=== PATIENT | female | born 1960 | race American Indian/Alaskan Native ===

== ENCOUNTER 2021-05-01 12:33 | Inpatient (IN) | payer BC ==
--- NOTE | 2021-05-01 12:39 | Emergency Department Report ---
ED Neuro Deficit HPI - General Stated Complaint: POSSIBLE CVA Time Seen by Provider: 05/01/21 12:35 Source: patient, EMS Mode of arrival: Stretcher Limitations: Physical Limitation - History of Present Illness Initial Comments: 61-year-old female with a past medical history hypertension and diabetes presents with EMS after having a seizure at work and right-sided weakness. EMS was called approximate 11:37AM. Patient apparently had a syncopal episode while at work and was called by bystanders. No head injury reported. Patient had 2 seizures witnessed by coworkers and one seizure witnessed by EMS. Patient received 1 mg of Ativan IV. They report that patient was aphasic but started to answer questions in route to the hospital. She is currently alert, oriented x3 although slow to respond to questions. Accu-Chek reported 139 - Related Data Allergies/Adverse Reactions: Allergies Allergy/AdvReac Type Severity Reaction Status Date / Time No Known Allergies Allergy Verified 05/01/21 13:54 ED Review of Systems ROS: Stated complaint: POSSIBLE CVA Other details as noted in HPI Comment: Unobtainable due to pts medical conditions ED Neuro Physical Exam - General Suspected Stroke: Yes - Head Head exam: Present: atraumatic - Neurological Exam Neurological exam: Present: alert - NIHSS Assessment Interval: Baseline 1a. Level of Consciousness: alert/keenly responsive 1b. LOC Questions: answers both correctly 1c. LOC Commands: performs tasks correctly 2. Best Gaze: normal 3. Visual: no visual loss 4. Facial Palsy: normal symmetrical movement 5b. Motor Arm Right: drift 5a. Motor Arm Left: no drift 6a. Motor Leg Left: no drift 6b. Motor Leg Right: some gravity effort 7. Limb Ataxia: absent 8. Sensory: normal 9. Best Language: no aphasia 10. Dysarthria: mild/moderate dysarthria 11. 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 Psych: Appropriate behavior Skin: No rash ED Course Vital Signs 05/01/21 05/01/21 05/01/21 13:24 13:30 13:50 Pulse Rate 55 L 53 L Respiratory 19 20 17 Rate Blood Pressure 137/73 O2 Sat by Pulse 100 100 Oximetry 05/01/21 05/01/21 05/01/21 14:00 14:16 14:30 Pulse Rate 52 L 65 70 Respiratory 17 17 18 Rate Blood Pressure 137/73 123/58 140/61 O2 Sat by Pulse 99 99 99 Oximetry 05/01/21 05/01/21 14:46 15:00 Pulse Rate 69 68 Respiratory 16 12 Rate Blood Pressure 135/68 135/61 O2 Sat by Pulse 97 100 Oximetry - Reevaluation(s) Reevaluation #1: 05/01/21 13:30 Patient is now speaking more fluently than she was when she 1st arrived. She does not endorse tongue biting but states she did urinate on herself during seizure activity. 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 05/01/21 14:32 tpa was reordered based on corrected weight - Consultations Consultation #1: 05/01/21 13:59 Neurology was contacted prior to patient's arrival and upon return for CAT scan for assessment of patient. CT head results reviewed and patient deemed a candidate for TPA given persistent right-sided deficits and inability to ambulate secondary to right leg weakness. Patient consented for TPA after neurologist reviewed risks and benefits. 05/01/21 15:09 case d/w Neuro Dr Carter interventionalist at [place], since neuro stroke scale low and lack of proximal large vessel occlusion, he does not feel pt meets criteria for occlusion. - Lab Data Result diagrams: 05/01/21 13:02 05/01/21 13:02 Lab Results 05/01/21 05/01/21 05/01/21 Range/Units 12:36 13:02 13:02 WBC 7.8 (4.5-11.0) K/mm3 RBC 4.56 (3.65-5.03) M/mm3 Hgb 11.4 (10.1-14.3) gm/dl Hct 36.0 (30.3-42.9) % MCV 79 (79-97) fl MCH 25 L (28-32) pg MCHC 32 (30-34) % RDW 16.7 H (13.2-15.2) % Plt Count 189 (140-440) K/mm3 Lymph % (Auto) 18.3 (13.4-35.0) % Giles % (Auto) 6.0 (0.0-7.3) % Eos % (Auto) 1.0 (0.0-4.3) % Baso % (Auto) 0.3 (0.0-1.8) % Lymph # (Auto) 1.4 (1.2-5.4) K/mm3 Giles # (Auto) 0.5 (0.0-0.8) K/mm3 Eos # (Auto) 0.1 (0.0-0.4) K/mm3 Baso # (Auto) 0.0 (0.0-0.1) K/mm3 Seg Neutrophils % 74.4 H (40.0-70.0) % Seg Neutrophils # 5.8 (1.8-7.7) K/mm3 PT 13.9 (12.2-14.9) Sec. INR 0.96 (0.87-1.13) APTT 21.5 L (24.2-36.6) Sec. Thrombin Time 17.4 (15.1-19.6) Sec. Sodium (137-145) mmol/L Potassium (3.6-5.0) mmol/L Chloride (98-107) mmol/L Carbon Dioxide (22-30) mmol/L Anion Gap mmol/L BUN (7-17) mg/dL Creatinine (0.6-1.2) mg/dL Estimated GFR ml/min BUN/Creatinine Ratio % Glucose (65-100) mg/dL POC Glucose 95 (70-105) mg/dL Calcium (8.4-10.2) mg/dL Magnesium (1.7-2.3) mg/dL Total Bilirubin (0.1-1.2) mg/dL AST (5-40) units/L ALT (7-56) units/L Alkaline Phosphatase (35-129) units/L Total Creatine Kinase (30-135) units/L CK-MB (CK-2) (0.0-4.0) ng/mL CK-MB (CK-2) Rel Index (0-4) Troponin T (0.00-0.029) ng/mL Total Protein (6.3-8.2) g/dL Albumin (3.9-5) g/dL Albumin/Globulin Ratio % 05/01/21 05/01/21 Range/Units 13:02 13:02 WBC (4.5-11.0) K/mm3 RBC (3.65-5.03) M/mm3 Hgb (10.1-14.3) gm/dl Hct (30.3-42.9) % MCV (79-97) fl MCH (28-32) pg MCHC (30-34) % RDW (13.2-15.2) % Plt Count (140-440) K/mm3 Lymph % (Auto) (13.4-35.0) % Giles % (Auto) (0.0-7.3) % Eos % (Auto) (0.0-4.3) % Baso % (Auto) (0.0-1.8) % Lymph # (Auto) (1.2-5.4) K/mm3 Giles # (Auto) (0.0-0.8) K/mm3 Eos # (Auto) (0.0-0.4) K/mm3 Baso # (Auto) (0.0-0.1) K/mm3 Seg Neutrophils % (40.0-70.0) % Seg Neutrophils # (1.8-7.7) K/mm3 PT (12.2-14.9) Sec. INR (0.87-1.13) APTT (24.2-36.6) Sec. Thrombin Time (15.1-19.6) Sec. Sodium 143 (137-145) mmol/L Potassium 3.5 L (3.6-5.0) mmol/L Chloride 109.3 H (98-107) mmol/L Carbon Dioxide 23 (22-30) mmol/L Anion Gap 14 mmol/L BUN 18 H (7-17) mg/dL Creatinine 0.9 (0.6-1.2) mg/dL Estimated GFR > 60 ml/min BUN/Creatinine Ratio 20 % Glucose 116 H (65-100) mg/dL POC Glucose (70-105) mg/dL Calcium 7.9 L (8.4-10.2) mg/dL Magnesium 1.70 (1.7-2.3) mg/dL Total Bilirubin 0.20 (0.1-1.2) mg/dL AST 10 (5-40) units/L ALT 11 (7-56) units/L Alkaline Phosphatase 85 (35-129) units/L Total Creatine Kinase 160 H (30-135) units/L CK-MB (CK-2) 2.1 (0.0-4.0) ng/mL CK-MB (CK-2) Rel Index 1.3 (0-4) Troponin T < 0.010 (0.00-0.029) ng/mL Total Protein 5.1 L (6.3-8.2) g/dL Albumin 3.3 L (3.9-5) g/dL Albumin/Globulin Ratio 1.8 % - EKG Data -: EKG Interpreted by Ca EKG shows normal: sinus rhythm (no stemi, inf lat t inversions), ST-T waves (no stemi, in lat t in versions) Rate: bradycardia (53) - Radiology Data Radiology results: report reviewed CT head/brain wo con INDICATION / CLINICAL INFORMATION: 61 years Female; call report [phone] Stroke symptoms. TECHNIQUE: Routine CT head without contrast. All CT scans at this location are performed using CT dose reduction for ALARA by means of automated exposure control. COMPARISON: None. FINDINGS: BRAIN / INTRACRANIAL CONTENTS: The brain appears to demonstrate appropriate attenuation for age. The ventricular system is within normal limits in size and configuration. There is no clear CT evidence of acute intracranial hemorrhage or significant mass effect. ORBITS: No significant abnormality of visualized orbits. SINUSES / MASTOIDS: No significant abnormality in the visualized paranasal sinuses or mastoid air cells. CRANIOCERVICAL JUNCTION: No significant abnormality. ADDITIONAL FINDINGS: There is an incidental calcification along the left anterior to mid falx measuring 1.2 similar greatest AP dimension at. There is no significant mass effect or adjacent of vasogenic edema. This finding most likely reflects a incidental dural calcification. Process such as calcified meningioma is felt to be a less likely given the orientation. IMPRESSION: 1. There is no CT evidence of acute intracranial process. 2. There is incidental 1.2 cm focus of calcification projected along the anterior mid left falx as described. CT angio neck INDICATION / CLINICAL INFORMATION: 61 years Female; stroke sx OMNI 350 100ML. TECHNIQUE: Thin cut axial images obtained through the head during IV bolus contrast administration. Sagittal, coronal, and 3 plane MIP reconstructions performed by the technologist. NASCET type criteria used evaluate stenoses. All CT scans at this location are performed using CT dose reduction for ALARA by means of automated exposure control. COMPARISON: None available. FINDINGS: CAROTID ARTERIES: There is atherosclerotic plaque involving proximal right ICA with approximately 30-40% stenosis by NASCET criteria, best seen on the sagittal reconstructed images. There is milder plaque involving the proximal left ICA without significant stenosis by NASCET criteria. VERTEBRAL ARTERIES: The motion and beam hardening obscure the origins of the vertebral arteries. However, there is no clear CTA evidence of significant focal stenosis involving cervical vertebral arteries. ARCH: There is no clear evidence of significant stenosis involving origins of the arch vessels at. There appears to be developmental common origin of the brachiocephalic and left common carotid arteries. ADDITIONAL FINDINGS: Remainder of the surrounding soft tissues are grossly normal. IMPRESSION: There is atherosclerotic plaque involving proximal right ICA with 30-40% stenosis by NASCET criteria. There is mild plaque involving proximal left ICA without significant stenosis by NASCET criteria. There is no significant stenosis involving cervical vertebral arteries or arch vessels. CT angio head INDICATION / CLINICAL INFORMATION: 61 years Female; stroke sx. TECHNIQUE: Thin cut axial images obtained through the head during IV bolus contrast administration. Sagittal, coronal, and 3 plane MIP reconstructions performed by the technologist. NASCET type criteria used evaluate stenoses. Automated exposure control utilized for radiation reduction purposes. COMPARISON: None available. FINDINGS: INTERNAL CAROTID ARTERIES: There are foci of atherosclerotic calcification along the ophthalmic and clinoid segments of the right ICA with apparent mild to moderate stenosis by NASCET criteria. There is no significant focal narrowing involving the intracranial left ICA. VERTEBROBASILAR SYSTEM: There is calcification involving the proximal intracranial segments of the vertebral arteries also with mild to moderate narrowing which appears greater on the left. There is no significant focal stenosis involving the basilar artery. 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 The motion obscures evaluation of the more distal cerebral branches at. However, there is no clear evidence of significant stenosis involving the proximal cerebral arteries. There does appear to be relative decreased contrast opacification of the vessels within the right frontal lobe which may be related to the degree of motion artifact and positioning and correlation would be needed given history of unspecified "stroke symptoms". ANEURYSM: None identified. ADDITIONAL FINDINGS: There is developmental hypoplasia the left transverse and sigmoid sinuses with faint opacification. IMPRESSION: The study some to by motion. However, appears be relative decrease contrast opacification of the branch of vessels within the right frontal lobe as detailed above and correlation would be needed given the history of unspecified "stroke symptoms". There is atherosclerotic calcification with mild to moderate narrowing of the intracranial right ICA and bilateral vertebral arteries as detailed above. - Medical Decision Making 61-year-old female with a past medical history of hypertension diabetes presents to the hospital with seizure and right-sided weakness. Patient speech and weakness gradually improving in the department however, patient has persistent right leg weakness making it difficult for her to stand and ambulate. This was deemed a significant deficit as per neurology and TPA was recommended after negative CT head obtained. No large vessel occlusion identified on CT angiogram. Patient also received Keppra for seizure activity prior to arrival. Patient will require admission to the ICU. Case discussed with hospitalist Dr. Hernandez - Differential Diagnosis Ischemic CVA, hemorrhagic CVA, seizure, Bernardo's paralysis Critical Care Time: Yes Critical care time in (mins) excluding proc time.: 35 Critical care attestation.: If time is entered above; I have spent that time in minutes in the direct care of this critically ill patient, excluding procedure time. Critical Care Time: 35 Minutes of critical care time excluding procedures were used in the care of the patient. I came immediately to the bedside upon patient's arrival. I obtained history from EMS at the bedside. I discussed treatment plan with the nursing team members. I reviewed electronic record. Patient required multiple interventions and reassessments. Spoke with technology consultant emergently regarding stroke evaluation. Hospitalist to admit ED Disposition Clinical Impression: New onset seizure, Right sided weakness, Received intravenous tissue plasminog en activator (tPA) in emergency department Disposition: ADMITTED INPATIENT Is pt being admited?: Yes Condition: Stable Time of Disposition: 14:36 (DR Hernandez/hospitalist)
[2021-05-01 13:24] LABS: Basophils % (Auto) 0.3 % (0.0-1.8); Eosinophils # (Auto) 0.1 K/mm3 (0.0-0.4); Hemoglobin 11.4 gm/dl (10.1-14.3); Lymphocytes # (Auto) 1.4 K/mm3 (1.2-5.4); Lymphocytes % (Auto) 18.3 % (13.4-35.0); Mean Corpuscular HGB Conc 32 % (30-34); Mean Corpuscular Volume 79 fl (79-97); Monocytes # (Auto) 0.5 K/mm3 (0.0-0.8); Platelet Count 189 K/mm3 (140-440); Red Blood Count 4.56 M/mm3 (3.65-5.03); Red Cell Distribution Width 16.7 % (13.2-15.2)
[2021-05-01 13:26] LABS: INR 0.96 (0.87-1.13); Partial Thromboplastin Time 21.5 Sec. (24.2-36.6); Thrombin Time 17.4 Sec. (15.1-19.6)
[2021-05-01 13:54] LABS: Creatine Kinase MB 2.1 ng/mL (0.0-4.0)
[2021-05-01 13:55] LABS: Alanine Aminotransferase 11 units/L (7-56); Albumin 3.3 g/dL (3.9-5); BUN/Creatinine Ratio 20; Blood Urea Nitrogen 18 mg/dL (7-17); Calcium 7.9 mg/dL (8.4-10.2); Hemolysis Index 7
--- NOTE | 2021-05-01 13:56 | Cat Scan Report ---
CT head/brain wo con INDICATION / CLINICAL INFORMATION: 61 years Female; call report [phone] Stroke symptoms. TECHNIQUE: Routine CT head without contrast. All CT scans at this location are performed using CT dos e reduction for ALARA by means of automated exposure control. COMPARISON: None. FINDINGS: BRAIN / INTRACRANIAL CONTENTS: The brain appears to demonstrate appropriate attenuation for age. The ventricular system is within normal limits in size and configuration. There is no clear CT evidence o f acute intracranial hemorrhage or significant mass effect. ORBITS: No significant abnormality of visualized orbits. SINUSES / MASTOIDS: No significant abnormality in the visualized paranasal sinuses or mastoid air isabel ls. CRANIOCERVICAL JUNCTION: No significant abnormality. ADDITIONAL FINDINGS: There is an incidental calcification along the left anterior to mid falx measuri ng 1.2 similar greatest AP dimension at. There is no significant mass effect or adjacent of vasogenic edema. This finding most likely reflects a incidental dural calcification. Process such as calcified meningioma is felt to be a less likely given the orientation. IMPRESSION: 1. There is no CT evidence of acute intracranial process. 2. There is incidental 1.2 cm focus of calcification projected along the anterior mid left falx as de scribed. The study was specified as code stroke and called emergently to Dr. Luna at 12:45 PM Central standard time. Signer Name: Emiliano Evans MD Signed: 05/01/2021 1:51 PM Workstation Name: [id number]
[2021-05-01] MEDS ORDERED: SODIUM CHLORIDE 0.9% 50 ML IVPB IV ONE ×2 (13:58→14:26)
[2021-05-01] MEDS ORDERED: ALTEPLASE 100 MG INJ KIT IV ONE ×4 (13:58→14:26)
--- NOTE | 2021-05-01 14:00 | Cat Scan Report ---
CT angio neck INDICATION / CLINICAL INFORMATION: 61 years Female; stroke sx OMNI 350 100ML. TECHNIQUE: Thin cut axial images obtained through the head during IV bolus contrast administration. S agittal, coronal, and 3 plane MIP reconstructions performed by the technologist. NASCET type criteria used evaluate stenoses. All CT scans at this location are performed using CT dose reduction for ALAR A by means of automated exposure control. COMPARISON: None available. FINDINGS: CAROTID ARTERIES: There is atherosclerotic plaque involving proximal right ICA with approximately 30- 40% stenosis by NASCET criteria, best seen on the sagittal reconstructed images. There is milder plaq ue involving the proximal left ICA without significant stenosis by NASCET criteria. VERTEBRAL ARTERIES: The motion and beam hardening obscure the origins of the vertebral arteries. Chun ignacio, there is no clear CTA evidence of significant focal stenosis involving cervical vertebral arteri es. ARCH: There is no clear evidence of significant stenosis involving origins of the arch vessels at. Th ere appears to be developmental common origin of the brachiocephalic and left common carotid arteries . ADDITIONAL FINDINGS: Remainder of the surrounding soft tissues are grossly normal. IMPRESSION: There is atherosclerotic plaque involving proximal right ICA with 30-40% stenosis by NASCET criteria. There is mild plaque involving proximal left ICA without significant stenosis by NASCET criteria. There is no significant stenosis involving cervical vertebral arteries or arch vessels. Signer Name: Emiliano Evans MD Signed: 05/01/2021 1:56 PM Workstation Name: [id number]
--- NOTE | 2021-05-01 14:09 | Cat Scan Report ---
CT angio head INDICATION / CLINICAL INFORMATION: 61 years Female; stroke sx. TECHNIQUE: Thin cut axial images obtained through the head during IV bolus contrast administration. S agittal, coronal, and 3 plane MIP reconstructions performed by the technologist. NASCET type criteria used evaluate stenoses. Automated exposure control utilized for radiation reduction purposes. COMPARISON: None available. FINDINGS: INTERNAL CAROTID ARTERIES: There are foci of atherosclerotic calcification along the ophthalmic and c linoid segments of the right ICA with apparent mild to moderate stenosis by NASCET criteria. There is no significant focal narrowing involving the intracranial left ICA. VERTEBROBASILAR SYSTEM: There is calcification involving the proximal intracranial segments of the ve rtebral arteries also with mild to moderate narrowing which appears greater on the left. There is no significant focal stenosis involving the basilar artery. 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 The motion o bscures evaluation of the more distal cerebral branches at. However, there is no clear evidence of si gnificant stenosis involving the proximal cerebral arteries. There does appear to be relative decreas ed contrast opacification of the vessels within the right frontal lobe which may be related to the de gree of motion artifact and positioning and correlation would be needed given history of unspecified "stroke symptoms". ANEURYSM: None identified. 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 IMPRESSION: The study some to by motion. However, appears be relative decrease contrast opacification of the bran ch of vessels within the right frontal lobe as detailed above and correlation would be needed given t he history of unspecified "stroke symptoms". There is atherosclerotic calcification with mild to moderate narrowing of the intracranial right ICA and bilateral vertebral arteries as detailed above. Signer Name: Emiliano Evans MD Signed: 05/01/2021 2:05 PM Workstation Name: [id number]
[2021-05-01] MEDS ORDERED: levETIRAcetam 1000 MG/NS 0.75% 1,000 MG/100 ML BAG IV ONE (14:30)
--- NOTE | 2021-05-01 14:37 | History and Physical Report ---
History of Present Illness Chief complaint: She said that she was weak on her right side and then she had a seizure History of present illness: 61 YO Female with Obesity presents to ED for evaluation. Patient has diminished cognition at the time my evaluation and is unable to provide detailed history. Patient history taken EMS staff, ED staff, as well as coworkers who witnessed the incident. As per coworkers the patient complained of right-sided weakness and subsequently lost consciousness. Patient subsequently had multiple witnessed seizures lasting longer than 5 minutes without return to baseline level of consciousness. EMS was notified and upon arrival the patient was found to be in distress with a neurologic deficit with new onset seizure disorder. A code stroke was called and the patient was transported to [facility] for further care and evaluation of the aforementioned symptoms. The patient was seen and evaluated in the emergency department. All lab and imaging studies reviewed. Patient found to have a focal neurologic deficit and was initiated on CVA protocol. Teleneurology team consulted in ED. Patient treated with TPA. Patient admitted to ICU status post TPA due to increased risk of worsening symptoms. Patient has diminished cognition but has a positive gag reflex and is able to protect her airway without difficulty. No reports of fever, chills, chest pain, palpitation, productive cough, skin rash, recent contact, known exposure to COVID-19. No prior admission for review. No medication listed at time of admission for reconciliation. Advanced care planning conducted in ED. Past History Past Medical History: other (See HPI) Past Surgical History: No surgical history, Other (Reviewed) Social history: single. denies: smoking, alcohol abuse, prescription drug abuse Family history: hypertension Medications and Allergies Allergies Allergy/AdvReac Type Severity Reaction Status Date / Time No Known Allergies Allergy Verified 05/01/21 13:54 Active Meds: Active Medications Levetiracetam (Keppra 1,000 Mg/Ns 0.75% 100ml) 1,000 mg in 100 mls @ 400 mls/hr IV ONCE ONE Stop: 05/01/21 14:44 Review of Systems ROS unobtainable: due to mental status Exam - Constitutional General appearance: Present: mild distress, obese - EENT Eyes: Present: PERRL ENT: hearing intact, clear oral mucosa, hearing decreased - Neck Neck: Present: supple, normal ROM - Respiratory Respiratory effort: normal Respiratory: bilateral: CTA - Cardiovascular Heart Sounds: Present: S1 & S2. Absent: rub, click - Extremities Extremities: pulses symmetrical, No edema Peripheral Pulses: within normal limits - Abdominal General gastrointestinal: Present: soft, non-tender, non-distended, normal bowel sounds Female genitourinary: Present: normal - Integumentary Integumentary: Present: clear, warm, dry - Musculoskeletal Musculoskeletal: right sided weakness - Psychiatric Psychiatric: no appropriate mood/affect, no intact judgment & insight, no memory intact - Neurologic Neurologic: moves all extremities, no gait normal HEART Score - HEART Score Troponin: Troponin T < 0.010 ng/mL (0.00-0.029) 05/01/21 13:02 Results - Labs CBC & Chem 7: 05/01/21 13:02 05/01/21 13:02 Labs: Abnormal lab results 05/01/21 05/01/21 05/01/21 Range/Units 13:02 13:02 13:02 MCH 25 L (28-32) pg RDW 16.7 H (13.2-15.2) % Seg Neutrophils % 74.4 H (40.0-70.0) % APTT 21.5 L (24.2-36.6) Sec. Potassium (3.6-5.0) mmol/L Chloride (98-107) mmol/L BUN (7-17) mg/dL Glucose (65-100) mg/dL Calcium (8.4-10.2) mg/dL Total Creatine Kinase 160 H (30-135) units/L Total Protein (6.3-8.2) g/dL Albumin (3.9-5) g/dL 05/01/21 Range/Units 13:02 MCH (28-32) pg RDW (13.2-15.2) % Seg Neutrophils % (40.0-70.0) % APTT (24.2-36.6) Sec. Potassium 3.5 L (3.6-5.0) mmol/L Chloride 109.3 H (98-107) mmol/L BUN 18 H (7-17) mg/dL Glucose 116 H (65-100) mg/dL Calcium 7.9 L (8.4-10.2) mg/dL Total Creatine Kinase (30-135) units/L Total Protein 5.1 L (6.3-8.2) g/dL Albumin 3.3 L (3.9-5) g/dL Assessment and Plan - Patient Problems (1) CVA (cerebral vascular accident) Current Visit: Yes Status: Acute Plan to address problem: CVA protocol: CT head, neuro check, seizure precautions, physical therapy consulted, Occupational Therapy consulted, speech therapy consulted, telemetry n eurology consulted, patient administered TPA in the emergency department. Hold aspirin for 24 hours status post TPA, lipid panel, statin therapy. (2) Status epilepticus Current Visit: Yes Status: Acute Plan to address problem: New onset seizure disorder complicated by status epilepticus. Patient currently postictal. Seizure precaution, aspiration precautions, fall precautions, antiepileptic therapy, supportive care. Outpatient neurology follow-up. (3) Obesity (BMI 35.0-39.9 without comorbidity) Current Visit: Yes Status: Acute Plan to address problem: Balanced diet, increase physical activity at discharge, outpatient pulmonary follow-up for sleep study. (4) Right hemiparesis Current Visit: Yes Status: Acute Plan to address problem: Physical therapy consulted, supportive care. (5) Received intravenous tissue plasminogen activator (tPA) in emergency department Current Visit: No Status: Acute (6) DVT prophylaxis Current Visit: Yes Status: Acute Plan to address problem: SCD to bilateral lower extremities while in bed (7) Advance care planning Current Visit: Yes Status: Acute Plan to address problem: Disease education conducted, care plan discussed, diagnoses discussed, prognosis discussed, patient is full code, +30 minutes.
[2021-05-01] MEDS ORDERED: MAGNESIUM HYDROXIDE (MOM) ORAL LIQD UDC PO PRN (14:38)
[2021-05-01] MEDS ORDERED: oxyCODONE /ACETAMINOPHEN 5-325MG TAB PO PRN (14:38)
[2021-05-01] MEDS ORDERED: PROMETHAZINE 25 MG RECT SUPP PR PRN (14:38)
[2021-05-01] MEDS ORDERED: METOCLOPRAMIDE 10 MG TAB PO PRN (14:38)
[2021-05-01] MEDS ORDERED: HYDROmorphone 1 MG/1 ML INJ IV PRN (14:38)
[2021-05-01] MEDS ORDERED: ONDANSETRON 4 MG/2 ML INJ IV PRN (14:38)
[2021-05-01] MEDS ORDERED: ACETAMINOPHEN 325 MG TAB PO PRN (14:38)
--- NOTE | 2021-05-01 14:45 | Emergency Department Report ---
Blank Doc - Documentation Documentation: [facility] Consult Note # Demographics Consult Type: Acute Stroke Level 1 (0-4.5 hrs) Patient Location: Emergency Room First Name: Rachna Last Name: Teja Date of : 1960 Age: 61 Gender: Female Facility: [facility] # HPI History: 61 year old female coming from work presents with dizziness. Patient states she was in the service line when she got dizzy and had LOC. She doesnt recall anything after that. As per report from ED provider, patient had possible 3 witnessed seizures. Patient does not have any history of seizures. One of them was witnessed by EMS. She currently is slightly drowsy but oriented otherwise. P louis did receive Ativan after the last event. Patient complaining of RLE weakness that she states is new for her. She is not able to bear weight on her right leg. Last Known Normal: I have collected independent history specific to time last normal or last known well. We have collaborated with the provider and at this time, we have the most current timeline with the information that is available. 2 hours Duration: improving hours 11 am EST mental status improving but motor deficit still present Possible Thrombolytic candidate: not on warfarin or NOACs no intracranial hemorrhage history no recent major surgery no known active major internal bleeding no known blood disorders # Scores Time of exam and NIHSS (Eastern Time): 05/01/2021, 13:27 Level of Consciousness 1a: [0] = Alert; keenly responsive LOC Questions 1b: [0] = Answers both questions correctly LOC Commands 1c: [0] = Performs both tasks correctly Best Gaze 2: [0] = Normal Visual 3: [0] = No visual loss Facial Palsy 4: [0] = Normal symmetrical movements Motor Arm Left 5a: [0] = No drift Motor Arm Right 5b: [0] = No drift Motor Leg Left 6a: [0] = No drift Motor Leg Right 6b: [2] = Some effort against gravity Limb Ataxia 7: [0] = Absent Sensory 8: [1] = [id number] sensory loss Best Language 9: [0] = No aphasia Dysarthria 10: [0] = Normal Extinction and Inattention 11: [0] = No abnormality NIHSS Total: 3 # Exam Mental Status: Patient is slightly slow to respond but her responses are correct. She is able to follow all commands. Additional Neurologic Exam: Patient with difficulty walking due to RLE weakness that is new for her starting today. She feels her gait is off. # PMH-FH-SH Past Medical History: Diabetes hypertension Past Surgical History: cholecystectomy total hip replacement Social History: smoker non-drinker no drugs Medications: antihypertensive diabetic medication # Data Time Head CT personally read by me ( Time): 05/01/2021, 13:[address]: no bleed preliminarily reviewed by me, please refer to radiology read for official reading possible calcified meningioma CTA Head: no large vessel occlusion preliminarily reviewed by me, please refer to radiology read for official reading CTA Neck: preliminarily reviewed by me, please refer to radiology read for official reading # Assessment Impression: 61 year old male with hx of HTN, DM presents to the ER from work after having LOC. Patient had 3 witnessed seizure events, the last seen by EMS after which she received Ativan 1-2mg (unclear dose). Patient currently slightly drowsy and slow to respond but otherwise with it. She is complaining of some sensory deficit on the right arm and leg that is minimal. There is some effort against gravity in the RLE. NIHSS: 3. Given patients risk factors, there is certainly concern for stroke. CTH reviewed with no contraindication noted. Official read on CTA pending. Given thats NIHSS is 3 but with disabling deficit of inability to ambulate properly, we would recommend tpa at this time. She is within the time window. I discussed side effects of tpa including major bleeding in brain or body that can lead to paralysis or . Patient confirmed understanding. Dr. Quinones was present in the room. Contraindications reviewed and none noted. CTA pending. Recommend stat read and consideration for IR if noted to have LVO. Patient will be admitted for stroke work up. # Plan Thrombolytic/Intervention: IV thrombolytic and possible IA candidate Possible IA Candidate: CTA pending Time IV Thrombolytic Recommended (): 05/01/2021, 13:55 Blood Pressure Management: nicardipine IV fluid bolus Target Blood Pressure: SBP < 180 DBP < 105 Labs: CBC comprehensive metabolic panel hemoglobin A1c lipid panel TSH urine drug screen ua Imaging: (urgency: STAT): CT Angiogram Head and CT Angiogram Neck Imaging: (urgency: routine): MRI Brain with AND without contrast Diagnostic Test: echo with bubble study EEG Therapy/Evaluation: NPO until swallow evaluation PT/OT evaluation speech/swallow consultation Medication: levetiracetam (Keppra) 1000 mg twice daily DVT Prophylaxis: SCD Thrombolytic Administration Recommendations: I reviewed the risks/benefits/alternatives of IV thrombolytic therapy with the patient. They understand there is potential of life threatening hemorrhage from IV thrombolysis. I stated that I believe benefits outweighs risk. They wish to proceed with IV thrombolytic therapy. I have collected independent history specific to time last normal or last known well. We have collaborated with the ED provider and at this time, we have the most current timeline with the information that is available. BP goal< 180/105 for 24hrs post Thrombolytic administration Use Labetolol 10-20mg IV prn or Nicardipine gtt to maintain BP parameters No antiplatelets or anticoagulants for next 24 hrs unless indicated for emergent IA procedure or other life threatening situation ICU admission Call back if there is any decline in neurological condition symptoms deemed to be disabling, despite low NIHSS Other: LDL < 70 If patient has any neurological deterioration please call me back immediately telemetry monitoring seizure precautions I have discussed my recommendations with the referring provider Disposition: transfer to ICU
[2021-05-01] MEDS ORDERED: SODIUM CHLORIDE 0.9% 50 ML IVPB IV PRN (15:00)
--- NOTE | 2021-05-01 16:45 | Vascular Lab Report ---
DUPLEX DOPPLER ULTRASOUND CAROTID, BILATERAL INDICATION / CLINICAL INFORMATION: stroke. COMPARISON: CTA neck performed today. FINDINGS: RIGHT CAROTID: Mild to moderate calcified atherosclerotic plaque. - PLAQUE ESTIMATE (%): < 50% - CCA velocity: 97 cm/sec. - ICA peak systolic velocity: 109 cm/sec. - ICA/CCA PSV Ratio: Less than 2. Right Vertebral Artery: Antegrade flow. LEFT CAROTID: Mild calcified atherosclerotic plaque. - PLAQUE ESTIMATE (%): < 50% - CCA velocity: 79 cm/sec. - ICA peak systolic velocity: 81 cm/sec. - ICA/CCA PSV Ratio: Less than 2. Left Vertebral Artery: Antegrade flow. IMPRESSION: 1. Right Internal Carotid Artery: Less than 50% diameter stenosis. 2. Left Internal Carotid Artery: Less than 50% diameter stenosis. Velocity criteria are extrapolated from diameter data as defined by the Society of Radiologists in Ul trasound Consensus Conference, Radiology 2003; 229;340-346. NO STENOSIS (NORMAL) - Plaque = none; ICA PSV < 125 cm/sec; ICA/CCA PSV Ratio < 2.0 <50% STENOSIS - Plaque < 50%; ICA PSV < 125 cm/sec; ICA/CCA PSV Ratio < 2.0 50-69% STENOSIS - Plaque > 50%; ICA PSV = 125-230 cm/sec; ICA/CCA PSV Ratio = 2.0-4.0 >70% BUT <100% STENOSIS - Plaque > 50%; ICA PSV > 230 cm/sec; ICA/CCA PSV Ratio > 4.0 NEAR OCCLUSION - Plaque = visible lumen; ICA PSV = high/low/none; ICA/CCA PSV Ratio = variable TOTAL OCCLUSION - Plaque = no lumen; ICA PSV = none; ICA/CCA PSV Ratio = N/A Scribed by: Jessica Wong RDMS, RVT Scribed: 05/01/2021 3:14 PM I have reviewed the images, agree with this report, and edited this report as needed. Signer Name: Mikael Dee MD Signed: 05/01/2021 4:41 PM Workstation Name: [id number]
[2021-05-02 06:22] LABS: Chol/HDL Ratio 3.57 %
[2021-05-02 09:45] LABS: Mean Corpuscular HGB Conc 30 % (30-34); Mean Corpuscular Volume 78 fl (79-97); Platelet Count 200 K/mm3 (140-440); Red Blood Count 5.39 M/mm3 (3.65-5.03); Red Cell Distribution Width 17.1 % (13.2-15.2)
[2021-05-02 09:49] LABS: Hematocrit 41.8 % (30.3-42.9); Hemoglobin 12.6 gm/dl (10.1-14.3)
--- NOTE | 2021-05-02 09:50 | Consultation ---
History of Present Illness Consult date: 05/02/21 Reason for Consult: right side weakness ,Syncopy and witnessed seizure,Post TPA History of present illness: She said that she was weak on her right side and then she had a seizure History of present illness: 61 YO Female with Obesity presents to ED for evaluation. Patient has diminished cognition at the time my evaluation and is unable to provide detailed history. Patient history taken EMS staff, ED staff, as well as coworkers who witnessed the incident. As per coworkers the patient complained of right-sided weakness and subsequently lost consciousness. Patient subsequently had multiple witnessed seizures lasting longer than 5 minutes without return to baseline level of consciousness. EMS was notified and upon arrival the patient was found to be in distress with a neurologic deficit with new onset seizure disorder. A code stroke was called and the patient was transported to [facility] for further care and evaluation of the aforementioned symptoms. The patient was seen and evaluated in the emergency department. All lab and imaging studies reviewed. Patient found to have a focal neurologic deficit and was initiated on CVA protocol. Teleneurology team consulted in ED. Patient treated with TPA. Josefa ent admitted to ICU status post TPA due to increased risk of worsening symptoms. Patient has diminished cognition but has a positive gag reflex and is able to protect her airway without difficulty. No reports of fever, chills, chest pain, palpitation, productive cough, skin rash, recent contact, known exposure to COVID-19. No prior admission for review. No medication listed at time of admission for reconciliation. Advanced care planning conducted in ED. Today pt. is alert oriented no complain,no weakness, denied hx of CVA or seizure CT remarkable for falx calcification CTA brain and neck is remarkable for atherosclerotic multiple calcifications intra cranial and ICA <40% -US carotid is <50% bilateral -today NIH#0 -LDl#133 -Echo is pending -MRI is pending Past History Past Medical History: other (See HPI) Past Surgical History: No surgical history, Other (Reviewed) Social history: single. denies: smoking, alcohol abuse, prescription drug abuse Family history: hypertension Medications and Allergies Allergies Allergy/AdvReac Type Severity Reaction Status Date / Time No Known Allergies Allergy Verified 05/01/21 13:54 Active Meds: Active Medications Levetiracetam (Keppra 1,000 Mg/Ns 0.75% 100ml) 1,000 mg in 100 mls @ 400 mls/hr IV ONCE ONE Stop: 05/01/21 14:44 Review of Systems ROS unobtainable: due to mental status Past History Past Medical History: other (See HPI) Past Surgical History: No surgical history, Other (Reviewed) Social history: single. denies: smoking, alcohol abuse, prescription drug abuse Family history: hypertension Medications and Allergies Allergies Allergy/AdvReac Type Severity Reaction Status Date / Time No Known Allergies Allergy Verified 05/01/21 13:54 Active Meds: Active Medications Acetaminophen (Acetaminophen 325 Mg Tab) 650 mg PO Q4H PRN PRN Reason: Pain, Mild (1-3) Aspirin (Aspirin 325 Mg Tab) 325 mg PO QDAY GAMALIEL Atorvastatin Calcium (Atorvastatin 40 Mg Tab) 40 mg PO QHS GAMALIEL Last Admin: 05/01/21 22:09 Dose: 40 mg Bisacodyl (Bisacodyl 10 Mg Rect Supp) 10 mg VA QDAY PRN PRN Reason: Constipation Hydromorphone HCl (Hydromorphone 1 Mg/1 Ml Inj) 0.5 mg IV Q23H PRN PRN Reason: Pain , Severe (7-10) Magnesium Hydroxide (Magnesium Hydroxide (Mom) Oral Liqd Udc) 30 ml PO Q4H PRN PRN Reason: Constipation Metoclopramide HCl (Metoclopramide 10 Mg Tab) 10 mg PO Q6H PRN PRN Reason: Nausea And Vomiting Ondansetron HCl (Ondansetron 4 Mg/2 Ml Inj) 4 mg IV Q8H PRN PRN Reason: Nausea And Vomiting Oxycodone/Acetaminophen (Oxycodone /Acetaminophen 5-325mg Tab) 1 tab PO Q16H PRN PRN Reason: Pain, Moderate (4-6) Promethazine HCl (Promethazine 25 Mg Rect Supp) 25 mg VA Q6H PRN PRN Reason: Nausea And Vomiting Sodium Chloride (Sodium Chloride 0.9% 50 Ml Ivpb) 10 ml IV PRN PRN PRN Reason: LINE FLUSH Physical Examination - Vital Signs Vital Signs: Vital Signs Resp 19 05/01/21 13:24 - Constitutional General appearance: comfortable - EENT EENT: Present: PERRL, mucous membranes moist - Respiratory Respiratory: Present: chest non-tender, lungs clear - Cardiovascular Cardiovascular: Present: regular rate, normal S1, normal S2 Extremities: Present: no peripheral edema bilatateraly, no clubbing, cyanosis - Gastrointestinal Gastrointestinal: Present: normoactive bowel sounds - Integumentary Integumentary: Present: normal - Neurologic Cranial nerve examination: PERRL, EOMI, intact Speech examination: intact Sensorimotor examination: intact Detailed motor examination: grossly full strength in - Level of Consciousness 1a. Level of Consciousness: alert/keenly responsive - LOC Questions 1b. LOC Questions: answers both correctly - LOC Command 1c. LOC Commands: performs tasks correctly - Best Gaze 2. Best Gaze: normal - Visual 3. Visual: no visual loss - Facial Palsy 4. Facial Palsy: normal symmetrical movement - Motor Arm 5a. Motor Arm Left: no drift 5b. Motor Arm Right: no drift - Motor Leg 6a. Motor Leg Left: no drift 6b. Motor Leg Right: no drift - Limb Ataxia 7. Limb Ataxia: absent - Sensory 8. Sensory: normal - Best Language 9. Best Language: no aphasia - Dysarthria 10. Dysarthria: normal - Extinction and Inattention 11. Extinction/Inattention: no abnormality - Scoring Total Score: 0 Stroke Severity: No Stroke Symptoms Results - Laboratory Findings CBC and BMP: 05/02/21 09:26 05/02/21 09:26 Abnormal Lab Findings: Abnormal Labs 05/01/21 05/01/21 05/01/21 13:02 13:02 13:02 MCH 25 L RDW 16.7 H Seg Neutrophils % 74.4 H APTT 21.5 L Potassium Chloride BUN Glucose POC Glucose Calcium Total Creatine Kinase 160 H Total Protein Albumin Cholesterol LDL Cholesterol Direct 05/01/21 05/01/21 05/02/21 13:02 16:47 04:47 MCH RDW Seg Neutrophils % APTT Potassium 3.5 L Chloride 109.3 H BUN 18 H Glucose 116 H POC Glucose 113 H Calcium 7.9 L Total Creatine Kinase Total Protein 5.1 L Albumin 3.3 L Cholesterol 211 H LDL Cholesterol Direct 133 H Assessment and Plan Assessment and Plan 61 YO Female with Obesity presents to ED for evaluation. Patient has diminished cognition at the time my evaluation and is unable to provide detailed history. Patient history taken EMS staff, ED staff, as well as coworkers who witnessed the incident. As per coworkers the patient complained of right-sided weakness and subsequently lost consciousness. Patient subsequently had multiple witnessed seizures lasting longer than 5 minutes without return to baseline level of consciousness. EMS was notified and upon arrival the patient was found to be in distress with a neurologic deficit with new onset seizure disorder. A code stroke was called and the patient was transported to [facility] for further care and evaluation of the aforementioned symptoms. The patient was seen and evaluated in the emergency department. All lab and imaging studies reviewed. Patient found to have a focal neurologic deficit and was initiated on CVA protocol. Teleneurology team consulted in ED. Patient treated with TPA. Patient admitted to ICU status post TPA due to increased risk of worsening symptoms. Patient has diminished cognition but has a positive gag reflex and is able to protect her airway without difficulty. No reports of fever, chills, chest pain, palpitation, productive cough, skin rash, recent contact, known exposure to COVID-19. No prior admission for review. No medication listed at time of admission for reconciliation. Advanced care planning conducted in ED. - Patient Problems #Possible CVA (cerebral vascular accident) - new onset right side weakness followed by syncopy and witnessed seizure -had TPA in ER yesterday -NIH today is #0 -No hx of CVA or Seizure -CT brain is unremarkable -CTA brain and neck is remarkable for scattered atherosclerotic disease intra and extracranial -MRI brain is pending -EEG is pending -Echo is pending -LDL#133 -Keppra 500 mg BID -PT/ST evaluate -Lipitor 40 mg -Hold ASA for now -Cardiac monitering # Status epilepticus -New onset seizure disorder complicated by status epilepticus. - Patient currently postictal. - Seizure precaution, aspiration precautions, fall precautions, antiepileptic therapy, supportive care. - Outpatient neurology follow-up. -Keppra 500 mg bid -EEG # Received intravenous tissue plasminogen activator (tPA) in emergency department # DVT prophylaxis -SCD to bilateral lower extremities while in bed will follow
[2021-05-02 09:59] LABS: Blood Urea Nitrogen 13 mg/dL (7-17); Calcium 8.9 mg/dL (8.4-10.2); Hemolysis Index 7
[2021-05-02] MEDS ORDERED: ASPIRIN 325 MG TAB PO SCH (10:00)
[2021-05-02 10:05] LABS: BUN/Creatinine Ratio 22
[2021-05-02] MEDS ORDERED: SODIUM CHLORIDE 0.9% 50 ML IVPB IV PRN (11:16)
--- NOTE | 2021-05-02 11:29 | Consultation ---
History of Present Illness Consult date: 05/02/21 Requesting physician: BOBO ATWOOD Reason for consult: other (Acute CVA s/p tpA) History of present illness: PULMONARY/CCM CONSULT NOTE (Full dictation # [id number]) Please see dictated notes for full details Past History Past Medical History: other (See HPI) Past Surgical History: No surgical history, Other (Reviewed) Social history: single. denies: smoking, alcohol abuse, prescription drug abuse Family history: hypertension Medications and Allergies Allergies Allergy/AdvReac Type Severity Reaction Status Date / Time No Known Allergies Allergy Verified 05/01/21 13:54 Active Meds: Active Medications Acetaminophen (Acetaminophen 325 Mg Tab) 650 mg PO Q4H PRN PRN Reason: Pain, Mild (1-3) Aspirin (Aspirin 325 Mg Tab) 325 mg PO QDAY GAMALIEL Atorvastatin Calcium (Atorvastatin 40 Mg Tab) 40 mg PO QHS GAMALIEL Last Admin: 05/01/21 22:09 Dose: 40 mg Bisacodyl (Bisacodyl 10 Mg Rect Supp) 10 mg ND QDAY PRN PRN Reason: Constipation Hydromorphone HCl (Hydromorphone 1 Mg/1 Ml Inj) 0.5 mg IV Q23H PRN PRN Reason: Pain , Severe (7-10) Levetiracetam (Levetiracetam 500 Mg Tab) 500 mg PO BID GAMALIEL Magnesium Hydroxide (Magnesium Hydroxide (Mom) Oral Liqd Udc) 30 ml PO Q4H PRN PRN Reason: Constipation Metoclopramide HCl (Metoclopramide 10 Mg Tab) 10 mg PO Q6H PRN PRN Reason: Nausea And Vomiting Ondansetron HCl (Ondansetron 4 Mg/2 Ml Inj) 4 mg IV Q8H PRN PRN Reason: Nausea And Vomiting Oxycodone/Acetaminophen (Oxycodone /Acetaminophen 5-325mg Tab) 1 tab PO Q16H PRN PRN Reason: Pain, Moderate (4-6) Promethazine HCl (Promethazine 25 Mg Rect Supp) 25 mg ND Q6H PRN PRN Reason: Nausea And Vomiting Sodium Chloride (Sodium Chloride 0.9% 50 Ml Ivpb) 10 ml IV PRN PRN PRN Reason: LINE FLUSH Sodium Chloride (Sodium Chloride 0.9% 50 Ml Ivpb) 10 ml IV PRN PRN PRN Reason: FLUSH Physical Examination Vital signs: Vital Signs Resp 19 05/01/21 13:24 Results - Laboratory Findings CBC and BMP: 05/02/21 09:26 05/02/21 09:26 PT/INR, D-dimer PT 13.9 Sec. (12.2-14.9) 05/01/21 13:02 INR 0.96 (0.87-1.13) 05/01/21 13:02 Abnormal lab findings: Abnormal Labs 05/01/21 05/01/21 05/01/21 13:02 13:02 13:02 RBC MCV MCH 25 L RDW 16.7 H Seg Neutrophils % 74.4 H APTT 21.5 L Potassium Chloride BUN Glucose POC Glucose Calcium Total Creatine Kinase 160 H Total Protein Albumin Cholesterol LDL Cholesterol Direct 05/01/21 05/01/21 05/02/21 13:02 16:47 04:47 RBC MCV MCH RDW Seg Neutrophils % APTT Potassium 3.5 L Chloride 109.3 H BUN 18 H Glucose 116 H POC Glucose 113 H Calcium 7.9 L Total Creatine Kinase Total Protein 5.1 L Albumin 3.3 L Cholesterol 211 H LDL Cholesterol Direct 133 H 05/02/21 05/02/21 09:26 09:26 RBC 5.39 H MCV 78 L MCH 23 L RDW 17.1 H Seg Neutrophils % APTT Potassium Chloride BUN Glucose 102 H POC Glucose Calcium Total Creatine Kinase Total Protein Albumin Cholesterol LDL Cholesterol Direct
--- NOTE | 2021-05-02 11:36 | Progress Note ---
<CHOLO COTTRELL - Last Filed: 05/02/21 18:01> Assessment and Plan Assessment and plan: This is a 61-year-old female with known past medical history of HTN, type 2 DM on metformin at home admitted for seizure, and acute CVA s/p TPA Hospital Course to Date: 05/02: s/p TPA, no complications noted. Patient remains with right side weakness. Neurology consulted, EEG and MRI pending. Plan for bedside swallow this am, speech/OT/PT also consulted. Bradycardia, HR in the low 40s, VSS. Per patient this is new for her, 2D echo pending and Cardiology consulted. D/w CCM patient is stable for transfer to telemetry this afternoon, if patient remains stable 24hrs post TPA. Assessment and Plan #CVA (cerebral vascular accident) #Right hemiparesis - s/p TPA per protocol - CT head noted - Continue neuro check per protocol - Neurology consulted - MRI brain and 2D echo pending - Continue to hold ASA for 24hrs post TPA - Speech/PT/OT consulted #Status Epilepticus - New onset seizure disorder - Loaded with Keppra in the ED - Neurology on consult - EEG and MRI brain pending - Continue Keppra BID - Seizure precaution #Bradycardia #H/o Hypertension - SB on the monitor, HR as low as 40 - Per patient this is new for her - Given acute CVA will consult Cardiology - 2D Echo pending - Normotensive - Per patient she was on Amlopidine 5mg Qday at home - Will hold all antihypertensive agents for now - Continue blood pressure monitor per protocol #Type 2 DM - Will check a1c - Low dose SSI Q6hrs - Avoid hypoglycemia #GI/DVT prophylaxis - PPI: Pepcid - SCD to bilateral lower extremities while in bed The high probability of a clinically significant, sudden or life threatening deterioration of the [multiple] system(s) required my full and direct attention, intervention and personal management. The aggregate critical care time was [60] minutes. This time is in addition to time spent performing reported procedures but includes the following: [x] Data Review and interpretation [x] Patient assessment and monitoring of vital signs [x] Documentation [x] Medication orders and management Disposition Plan: ICU Total Time Spent with Patient (Minutes): 60 History Interval history: Patient seen and examined at the bedside. Patient is fully AAO, on RA, with right sided weakness. YON overnight Hospitalist Physical - Constitutional Vitals: Temp Pulse Resp BP Pulse Ox 97.6 F 44 L 11 L 132/74 100 05/02/21 04:00 05/02/21 09:00 05/02/21 09:00 05/02/21 09:00 05/02/21 09:00 General appearance: Present: no acute distress, obese - EENT Eyes: Present: PERRL, EOM intact ENT: hearing intact, clear oral mucosa - Neck Neck: Present: normal ROM - Respiratory Respiratory effort: normal Respiratory: bilateral: CTA - Cardiovascular Rhythm: regular Heart Sounds: Present: S1 & S2 - Extremities Extremities: no ischemia, pulses intact, pulses symmetrical Extremity abnormal: edema - Peripheral Assessment Generalized Edema Type: Non-pitting Edema Degree: 1+ Capillary Refill: < 3 seconds Skin Temperature: Warm Peripheral Pulses: within normal limits - Abdominal General gastrointestinal: soft, non-distended, normal bowel sounds - Integumentary Integumentary: Present: warm, dry - Psychiatric Psychiatric: appropriate mood/affect, cooperative - Neurologic Neurologic: CNII-XII intact, focal deficits (Right sided weakness), moves all extremities - Allied Health Allied health notes reviewed: nursing HEART Score - HEART Score Troponin: Troponin T < 0.010 ng/mL (0.00-0.029) 05/01/21 13:02 Results - Labs CBC & Chem 7: 05/02/21 09:26 05/02/21 09:26 Labs: Laboratory Last Values WBC 5.7 K/mm3 (4.5-11.0) 05/02/21 09:26 RBC 5.39 M/mm3 (3.65-5.03) H 05/02/21 09:26 Hgb 12.6 gm/dl (10.1-14.3) 05/02/21 09:26 Hct 41.8 % (30.3-42.9) 05/02/21 09:26 MCV 78 fl (79-97) L 05/02/21 09:26 MCH 23 pg (28-32) L 05/02/21 09:26 MCHC 30 % (30-34) 05/02/21 09:26 RDW 17.1 % (13.2-15.2) H 05/02/21 09:26 Plt Count 200 K/mm3 (140-440) 05/02/21 09:26 Lymph % (Auto) 18.3 % (13.4-35.0) 05/01/21 13:02 [place] % (Auto) 6.0 % (0.0-7.3) 05/01/21 13:02 Eos % (Auto) 1.0 % (0.0-4.3) 05/01/21 13:02 Baso % (Auto) 0.3 % (0.0-1.8) 05/01/21 13:02 Lymph # (Auto) 1.4 K/mm3 (1.2-5.4) 05/01/21 13:02 [place] # (Auto) 0.5 K/mm3 (0.0-0.8) 05/01/21 13:02 Eos # (Auto) 0.1 K/mm3 (0.0-0.4) 05/01/21 13:02 Baso # (Auto) 0.0 K/mm3 (0.0-0.1) 05/01/21 13:02 Seg Neutrophils % 74.4 % (40.0-70.0) H 05/01/21 13:02 Seg Neutrophils # 5.8 K/mm3 (1.8-7.7) 05/01/21 13:02 PT 13.9 Sec. (12.2-14.9) 05/01/21 13:02 INR 0.96 (0.87-1.13) 05/01/21 13:02 APTT 21.5 Sec. (24.2-36.6) L 05/01/21 13:02 Thrombin Time 17.4 Sec. (15.1-19.6) 05/01/21 13:02 Sodium 143 mmol/L (137-145) 05/02/21 09:26 Potassium 3.8 mmol/L (3.6-5.0) 05/02/21 09:26 Chloride 106.5 mmol/L (98-107) 05/02/21 09:26 Carbon Dioxide 24 mmol/L (22-30) 05/02/21 09:26 Anion Gap 16 mmol/L 05/02/21 09:26 BUN 13 mg/dL (7-17) 05/02/21 09:26 Creatinine 0.6 mg/dL (0.6-1.2) 05/02/21 09:26 Estimated GFR > 60 ml/min 05/02/21 09:26 BUN/Creatinine Ratio 22 % 05/02/21 09:26 Glucose 102 mg/dL (65-100) H 05/02/21 09:26 POC Glucose 113 mg/dL (70-105) H 05/01/21 16:47 Calcium 8.9 mg/dL (8.4-10.2) 05/02/21 09:26 Magnesium 1.70 mg/dL (1.7-2.3) 05/01/21 13:02 Total Bilirubin 0.20 mg/dL (0.1-1.2) 05/01/21 13:02 AST 10 units/L (5-40) 05/01/21 13:02 ALT 11 units/L (7-56) 05/01/21 13:02 Alkaline Phosphatase 85 units/L (35-129) 05/01/21 13:02 Total Creatine Kinase 160 units/L (30-135) H 05/01/21 13:02 CK-MB (CK-2) 2.1 ng/mL (0.0-4.0) 05/01/21 13:02 CK-MB (CK-2) Rel Index 1.3 (0-4) 05/01/21 13:02 Troponin T < 0.010 ng/mL (0.00-0.029) 05/01/21 13:02 Total Protein 5.1 g/dL (6.3-8.2) L 05/01/21 13:02 Albumin 3.3 g/dL (3.9-5) L 05/01/21 13:02 Albumin/Globulin Ratio 1.8 % 05/01/21 13:02 Triglycerides 104 mg/dL (2-149) 05/02/21 04:47 Cholesterol 211 mg/dL (50-199) H 05/02/21 04:47 LDL Cholesterol Direct 133 mg/dL (50-130) H 05/02/21 04:47 HDL Cholesterol 59 mg/dL (40-59) 05/02/21 04:47 Cholesterol/HDL Ratio 3.57 % 05/02/21 04:47 Active Medications - Current Medications Current Medications: Generic Name Dose Route Start Last Admin Trade Name Freq PRN Reason Stop Dose Admin Acetaminophen 650 mg 05/01/21 14:38 Acetaminophen 325 Mg Tab PO Q4H PRN Pain, Mild (1-3) Aspirin 325 mg 05/03/21 10:00 Aspirin 325 Mg Tab PO QDAY GAMALIEL Atorvastatin Calcium 40 mg 05/01/21 22:00 05/01/21 22:09 Atorvastatin 40 Mg Tab PO 40 mg QHS GAMALIEL Administration Bisacodyl 10 mg 05/01/21 14:38 Bisacodyl 10 Mg Rect Supp ND QDAY PRN Constipation Hydromorphone HCl 0.5 mg 05/01/21 14:38 Hydromorphone 1 Mg/1 Ml Inj IV Q23H PRN Pain , Severe (7-10) Levetiracetam 500 mg 05/02/21 12:00 Levetiracetam 500 Mg Tab PO BID GAMALIEL Magnesium Hydroxide 30 ml 05/01/21 14:38 Magnesium Hydroxide (Mom) Oral Liqd Udc PO Q4H PRN Constipation Metoclopramide HCl 10 mg 05/01/21 14:38 Metoclopramide 10 Mg Tab PO Q6H PRN Nausea And Vomiting Ondansetron HCl 4 mg 05/01/21 14:38 Ondansetron 4 Mg/2 Ml Inj IV Q8H PRN Nausea And Vomiting Oxycodone/Acetaminophen 1 tab 05/01/21 14:38 Oxycodone /Acetaminophen 5-325mg Tab PO Q16H PRN Pain, Moderate (4-6) Promethazine HCl 25 mg 05/01/21 14:38 Promethazine 25 Mg Rect Supp ND Q6H PRN Nausea And Vomiting Sodium Chloride 10 ml 05/01/21 15:00 Sodium Chloride 0.9% 50 Ml Ivpb IV PRN PRN LINE FLUSH Sodium Chloride 10 ml 05/02/21 11:16 Sodium Chloride 0.9% 50 Ml Ivpb IV PRN PRN FLUSH <BONNIE MALAVE - Last Filed: 05/03/21 07:12> Assessment and Plan Assessment and plan: I saw and evaluated the patient. I agree with the findings and the plan of care as documented in the Nurse Practitioner's~note, with the following corrections and additions. Hospitalist Physical - Constitutional Vitals: Temp Pulse Resp BP Pulse Ox 97.6 F 50 L 21 143/69 98 05/02/21 23:15 05/03/21 04:00 05/03/21 04:00 05/02/21 23:15 05/03/21 04:00 HEART Score - HEART Score Troponin: Troponin T < 0.010 ng/mL (0.00-0.029) 05/01/21 13:02 Results - Labs CBC & Chem 7: 05/03/21 04:51 05/03/21 04:51 Labs: Laboratory Last Values WBC 6.8 K/mm3 (4.5-11.0) 05/03/21 04:51 RBC 5.51 M/mm3 (3.65-5.03) H 05/03/21 04:51 Hgb 13.3 gm/dl (10.1-14.3) 05/03/21 04:51 Hct 43.4 % (30.3-42.9) H 05/03/21 04:51 MCV 79 fl (79-97) 05/03/21 04:51 MCH 24 pg (28-32) L 05/03/21 04:51 MCHC 31 % (30-34) 05/03/21 04:51 RDW 16.7 % (13.2-15.2) H 05/03/21 04:51 Plt Count 208 K/mm3 (140-440) 05/03/21 04:51 Lymph % (Auto) 18.3 % (13.4-35.0) 05/01/21 13:02 [place] % (Auto) 6.0 % (0.0-7.3) 05/01/21 13:02 Eos % (Auto) 1.0 % (0.0-4.3) 05/01/21 13:02 Baso % (Auto) 0.3 % (0.0-1.8) 05/01/21 13:02 Lymph # (Auto) 1.4 K/mm3 (1.2-5.4) 05/01/21 13:02 [place] # (Auto) 0.5 K/mm3 (0.0-0.8) 05/01/21 13:02 Eos # (Auto) 0.1 K/mm3 (0.0-0.4) 05/01/21 13:02 Baso # (Auto) 0.0 K/mm3 (0.0-0.1) 05/01/21 13:02 Seg Neutrophils % 74.4 % (40.0-70.0) H 05/01/21 13:02 Seg Neutrophils # 5.8 K/mm3 (1.8-7.7) 05/01/21 13:02 PT 14.0 Sec. (12.2-14.9) 05/03/21 04:51 INR 0.97 (0.87-1.13) 05/03/21 04:51 APTT 36.0 Sec. (24.2-36.6) 05/02/21 09:26 Thrombin Time 17.4 Sec. (15.1-19.6) 05/01/21 13:02 Sodium 143 mmol/L (137-145) 05/03/21 04:51 Potassium 3.8 mmol/L (3.6-5.0) 05/03/21 04:51 Chloride 108.1 mmol/L (98-107) H 05/03/21 04:51 Carbon Dioxide 23 mmol/L (22-30) 05/03/21 04:51 Anion Gap 16 mmol/L 05/03/21 04:51 BUN 15 mg/dL (7-17) 05/03/21 04:51 Creatinine 0.8 mg/dL (0.6-1.2) 05/03/21 04:51 Estimated GFR > 60 ml/min 05/03/21 04:51 BUN/Creatinine Ratio 19 % 05/03/21 04:51 Glucose 130 mg/dL (65-100) H 05/03/21 04:51 POC Glucose 162 mg/dL (70-105) H 05/02/21 21:03 Hemoglobin A1c 6.3 % (4-6) H 05/03/21 04:51 Calcium 9.2 mg/dL (8.4-10.2) 05/03/21 04:51 Phosphorus 3.80 mg/dL (2.5-4.5) 05/03/21 04:51 Magnesium 1.80 mg/dL (1.7-2.3) 05/03/21 04:51 Total Bilirubin 0.20 mg/dL (0.1-1.2) 05/01/21 13:02 AST 10 units/L (5-40) 05/01/21 13:02 ALT 11 units/L (7-56) 05/01/21 13:02 Alkaline Phosphatase 85 units/L (35-129) 05/01/21 13:02 Total Creatine Kinase 160 units/L (30-135) H 05/01/21 13:02 CK-MB (CK-2) 2.1 ng/mL (0.0-4.0) 05/01/21 13:02 CK-MB (CK-2) Rel Index 1.3 (0-4) 05/01/21 13:02 Troponin T < 0.010 ng/mL (0.00-0.029) 05/01/21 13:02 Total Protein 5.1 g/dL (6.3-8.2) L 05/01/21 13:02 Albumin 3.3 g/dL (3.9-5) L 05/01/21 13:02 Albumin/Globulin Ratio 1.8 % 05/01/21 13:02 Triglycerides 104 mg/dL (2-149) 05/02/21 04:47 Cholesterol 211 mg/dL (50-199) H 05/02/21 04:47 LDL Cholesterol Direct 133 mg/dL (50-130) H 05/02/21 04:47 HDL Cholesterol 59 mg/dL (40-59) 05/02/21 04:47 Cholesterol/HDL Ratio 3.57 % 05/02/21 04:47 Active Medications - Current Medications Current Medications: Generic Name Dose Route Start Last Admin Trade Name Freq PRN Reason Stop Dose Admin Acetaminophen 650 mg 05/01/21 14:38 Acetaminophen 325 Mg Tab PO Q4H PRN Pain, Mild (1-3) Aspirin 325 mg 05/03/21 10:00 Aspirin 325 Mg Tab PO QDAY [facility] Atorvastatin Calcium 40 mg 05/01/21 22:00 05/02/21 20:59 Atorvastatin 40 Mg Tab PO 40 mg QHS GAMALIEL Administration Bisacodyl 10 mg 05/01/21 14:38 Bisacodyl 10 Mg Rect Supp ND QDAY PRN Constipation Dextrose 50 ml 05/02/21 18:32 Dextrose 50% In Water (25gm) 50 Ml Syringe IV Q30MIN PRN Hypoglycemia Protocol Dextrose 0 ml 05/02/21 18:52 Dextrose 10% *Hypoglycemia IV PRN PRN Hypoglycemia Famotidine 20 mg 05/02/21 22:00 05/02/21 20:59 Famotidine 20 Mg Tab PO 20 mg BID GAMALIEL Administration Insulin Human Lispro 0 unit 05/02/21 22:00 05/02/21 21:07 Insulin Lispro 100 Unit/Ml SUB-Q 1 unit ACHS GAMALIEL Administration Protocol Levetiracetam 500 mg 05/02/21 12:00 05/02/21 20:59 Levetiracetam 500 Mg Tab PO 500 mg BID GAMALIEL Administration Magnesium Hydroxide 30 ml 05/01/21 14:38 Magnesium Hydroxide (Mom) Oral Liqd Udc PO Q4H PRN Constipation Metoclopramide HCl 10 mg 05/01/21 14:38 Metoclopramide 10 Mg Tab PO Q6H PRN Nausea And Vomiting Ondansetron HCl 4 mg 05/01/21 14:38 Ondansetron 4 Mg/2 Ml Inj IV Q8H PRN Nausea And Vomiting Oxycodone/Acetaminophen 1 tab 05/01/21 14:38 Oxycodone /Acetaminophen 5-325mg Tab PO Q16H PRN Pain, Moderate (4-6) Sodium Chloride 10 ml 05/01/21 15:00 Sodium Chloride 0.9% 50 Ml Ivpb IV PRN PRN LINE FLUSH Sodium Chloride 10 ml 05/02/21 11:16 Sodium Chloride 0.9% 50 Ml Ivpb IV PRN PRN FLUSH
[2021-05-02] MEDS: levETIRAcetam 500 MG TAB PO SCH ×2 (12:20→20:59)
--- NOTE | 2021-05-02 15:34 | Magnetic Resonance Report ---
MR brain wo con INDICATION / CLINICAL INFORMATION: 61 years Female; CVA. TECHNIQUE: Multiplanar, multisequence MR images of the brain were obtained. COMPARISON: CT-05/01/2021 FINDINGS: BRAIN / INTRACRANIAL CONTENTS: Very small meningioma adjacent to the lateral aspect of the anterior t emporal lobe on the left is seen, which is also visualized on recent CTA of the head from 05/01/2021. This finding measures 11-12 mm in maximum dimension. . Otherwise, no acute hemorrhage, mass effect, midline shift, hydrocephalus, or acute, large territor ial infarct. No chronic infarct or atrophy. There are mild areas of increased signal intensity on FLAIR imaging in the white matter of the cerebr al hemispheres. These are nonspecific findings and may be related to microangiopathy (hypertension, d iabetes, atherosclerosis), given the patient's age. CRANIOCERVICAL JUNCTION: No significant abnormality. VASCULAR FLOW-VOIDS: No significant abnormality. ORBITS: No significant abnormality of visualized orbits. SINUSES / MASTOIDS: Mild to moderate mucosal thickening in the ethmoids. ADDITIONAL FINDINGS: None. IMPRESSION: 1. No focal intra-axial mass, hemorrhage, hydrocephalus, or acute ischemia seen. 2. Small meningioma suggested in the middle cranial fossa on the left, as described above. Signer Name: Dennis Zaidi MD, III Signed: 05/02/2021 3:29 PM Workstation Name: [id number]
[2021-05-02] MEDS ORDERED: DEXTROSE 50% IN WATER (25GM) 50 ML SYRINGE IV PRN (18:32)
[2021-05-02] MEDS ORDERED: DEXTROSE 10% *Hypoglycemia IV PRN (18:52)
[2021-05-02] MEDS: FAMOTIDINE 20 MG TAB PO SCH (20:59)
[2021-05-02] MEDS: INSULIN LISPRO 100 UNIT/ML SUB-Q SCH (21:07)
--- NOTE | 2021-05-02 22:21 | Consultation ---
DATE OF CONSULTATION: 05/02/2021 PULMONARY CRITICAL CARE CONSULTATION CONSULTING PHYSICIAN: Dr. Hernandez. REASON FOR CONSULTATION: Acute cerebrovascular accident, status post TPA administration. CHIEF COMPLAINT AND HISTORY OF PRESENT ILLNESS: The patient is a 61-year-old obese female with past medical history significant for diabetes and hypertension, presented via [facility] after having reported seizure at work and developing right-sided weakness. According to her, she just blacked out and kind of felt a little bit like something might be coming on, but denied palpitations. Denied nausea or vomiting. The emergency responders brought her to the Emergency Room immediately. Further history mentioned she had a syncopal episode at work and then had 2 more witnessed seizures and 1 seizure witnessed by [facility]. They gave her some Ativan. She responded to that. In the Emergency Room, she was evaluated. She was not hypoglycemic. After evaluation and recertification, a decision was made to administer TPA in light of the clinical examination, the focal weakness and after discussion with the Neurologist. Post-TPA, she was brought into the intensive critical care unit for further management. When I stopped by to see her, of note, her pulse was in the 40s, as low as 41. She denied any knowledge of bradycardia. She did admit that she takes amlodipine at home, but does not see a [employer], has not had this kind of prior episode again. She does have a 10+ pack year tobacco smoking history, mentioned that she smokes about 1/4 pack of cigarettes a day at this point. She denied any new-onset leg pain or swelling, either unilaterally or bilaterally or any suggestion of a deep venous thrombosis. This really is as much of the history of presentation as I have. PAST MEDICAL HISTORY: Again, significant for a diagnosis of hypertension and diabetes. She is also obese. PAST SURGICAL HISTORY: Unknown. MEDICATIONS: She was on at the time I stopped by to see her according to the medication administration record included the following: Tylenol 650 mg p.o. q. 4 hours p.r.n. mild pain or fevers, aspirin 325 mg p.o. daily, Lipitor 40 mg p.o. at bedtime, Dilaudid 0.5 mg IV q. 23 hours p.r.n. severe pain, Dulcolax 10 mg per rectum daily, Keppra 500 mg p.o. b.i.d., Reglan 10 mg p.o. q. 6 hours p.r.n. nausea and vomiting, Zofran 4 mg IV q. 8 hours p.r.n. nausea and vomiting, Percocet 5/325 one tablet p.o. q. 16 hours p.r.n. moderate pain. ALLERGIES: No known drug allergies. DIET: Obese lady, acute weight loss or gain history is unknown. FAMILY AND SOCIAL HISTORY: Lives in the community. Described as single. She has a 10+ pack year tobacco smoking history. She denied alcohol or illicit drug use or abuse. FAMILY HISTORY: Otherwise significant for hypertension. REVIEW OF SYSTEMS: She had a loss of consciousness. She has the new onset seizures. Denies gross hematochezia or melena. Denies gross hematuria or dysuria. Denies any new-onset extremity swelling. Denies palpitations. Denies a history of heat or cold intolerance. Denies polydipsia, polyuria. Complete 13-system review of system was obtained. Pertinent positives and/or negatives as in body of history above, otherwise noncontributory. PHYSICAL EXAMINATION: At presentation in the Emergency Room; VITAL SIGNS: First temperature that I have was normal at 98.3, pulse was 55, respiratory rate was 19, blood pressure 137/73, O2 sats were 100% that was on room air. Her pulse has been as low as 41 today. No loss of consciousness. GENERAL: She is an elderly obese female. Normocephalic, atraumatic. Talking to me in full sentences without significant dysarthria or aphasia and with normal respiratory effort at rest. HEAD, EYES, EARS, NOSE AND THROAT: Anicteric. No conjunctival erythema. Oropharynx was moist. NECK: No gross jugular venous distention. No thyromegaly. Grossly, there were no palpable lymph nodes in the supraclavicular or submandibular lymph node chains. LUNGS: Auscultation of both lung zamudio was unremarkable. She had good bilateral air movement and clear. HEART: Sounds 1 and 2 are heard at the time of my evaluation, regular rate and rhythm; however, with bradycardia in the 40s without overt rubs or murmurs. ABDOMEN: Soft, full, protuberant. Bowel sounds are positive, nontender, no palpable hepatosplenomegaly. EXTREMITIES: Without overt digital clubbing or cyanosis, no pedal edema. Pedal pulses are 2+ bilaterally. NEUROLOGIC: Pupils are equal, round, about 4 mm, reactive to light. Extraocular muscle movements were intact. She moves all 4 extremities spontaneously. However, the power on her right side is about 3/5 and on the left side, 5/5. SKIN: Normal turgor in the areas examined without overt cellulitis or rash. Please see the wound care nurses' notes for full description of her skin. PSYCHIATRIC: Mood was normal. Affect was appropriate. She had intact judgment and insight. LABORATORY DATA: From my review are as follows: Admission white cell count 7800, hemoglobin 11.4, hematocrit 36.0, platelet count 189. INR within normal limits. Serum sodium was 143, potassium 3.5, chloride 109, bicarbonate 23, BUN 18, creatinine 0.9, glucose was 116. Liver function test within normal limits. CPK was up at 160. Albumin was low at 3.3, otherwise liver function test within normal limits. LDL cholesterol was elevated at 133 and total cholesterol was elevated at 211. No microbiology studies. She had a CT of the head that did not show any acute intracranial process. It did show an incidental 1.2 cm focus of calcification, projecting along the anterior mid left falx cerebri as described in the body of the history. A CT angiogram was also done of the head and neck. Atherosclerotic plaque in the right ICA about 30-40%. Otherwise, no significant large vessel stenosis. The CTA of the head, no significant occlusion. Carotid ultrasound shows less than 50 cm diameter stenosis in both right and left. An echocardiogram has been done. Left ventricular ejection fraction 55-60 with mild diastolic dysfunction and right ventricular systolic pressures of 23 mmHg. An MRI has just been done, the result is pending. ASSESSMENT: 1. Acute cerebrovascular accident, status post TPA. 2. New onset seizures. 3. Bradycardia, possibly symptomatic. 4. History of hypertension. 5. Obesity. 6. History of diabetes. 7. Tobacco use disorder. 8. Mild hypokalemia at presentation. PLAN: I have strongly counseled tobacco abstinence and told her that she can always reach out to her primary care physician for aids with a tobacco cessation as necessary. She tells me she has made up her mind to do that. She is status post TPA. We will watch her for the 24-hour window. Neurology evaluation is ongoing. The MRI has been repeated. She is already on secondary prevention measures. She is on statin. Blood pressure control will be vital. She is going to continue on Keppra in the short time while Neurology evaluation is ongoing. I am going to start her on GI prophylaxis with Pepcid. DVT prophylaxis with SCDs for now. Flu and pneumonia vaccination will be addressed per protocol. Hopefully, she does well and can be transferred out of the Critical Care Unit after the 23-hour observation. Thank you very much for the consult. We will follow along and make further recommendations as picture progresses/becomes clearer. She is critically ill on life-sustained interventions including the tissue plasminogen activator, but still at risk of from neurologic, but also cardiac system decompensation. I should mention Cardiology consultation has been placed. At this time, I spent about 35-40 minutes of critical care time without overlap and excluding any procedural time that may be necessary. TID: [id number] RECEIPT: [id number] TAMIA/YADIEL
[2021-05-03 05:20] LABS: Mean Corpuscular HGB Conc 31 % (30-34); Mean Corpuscular Volume 79 fl (79-97); Platelet Count 208 K/mm3 (140-440); Red Blood Count 5.51 M/mm3 (3.65-5.03); Red Cell Distribution Width 16.7 % (13.2-15.2)
[2021-05-03 05:24] LABS: Hemoglobin 13.3 gm/dl (10.1-14.3)
[2021-05-03 05:25] LABS: Hematocrit 43.4 % (30.3-42.9)
[2021-05-03 05:32] LABS: BUN/Creatinine Ratio 19; Blood Urea Nitrogen 15 mg/dL (7-17); Calcium 9.2 mg/dL (8.4-10.2); Hemolysis Index 3
[2021-05-03 05:34] LABS: INR 0.97 (0.87-1.13)
[2021-05-03] MEDS: INSULIN LISPRO 100 UNIT/ML SUB-Q SCH ×3 (08:49→21:26)
--- NOTE | 2021-05-03 10:11 | Electrocardiograph Report ---
[facility] Test Date: 2021-05-01 Test Time: 13:33:11 Pat Name: TRINITY WATT Department: Room: A472 Gender: F Doula: CONOR Garcia : 1960 Requested By: LACEY ESCOBAR Order Number: [id number] Reading MD: Antonella Escamilla Measurements Intervals [place] Rate: 53 P: 66 [place]: 140 QRS: 38 QRSD: 83 T: -39 QT: 435 QTc: 411 Interpretive Statements Sinus rhythm Inferior infarct, age indeterminate Nonspecific T wave abnormality No previous ECG available for comparison Electronically Signed On 05-03-2021 10:10:50 EST by Antonella Escamilla
--- NOTE | 2021-05-03 10:41 | Progress Note ---
Assessment and Plan Acute cerebrovascular accident s/p TPA\ New onset seizures Bradycardia Hypertension Obesity DM II Tobacco use disorder Mild hypokalemia - continue empiric Keppra - follow neurology evaluation - prn supplemental oxygen to keep O2 sats > 90% - prn Bronchodilators (SOCO) with pulm hygiene per RT - avoid nephrotoxins, renally dose all medications - mobility protocols to prevent pressure ulcers - PT/OT as tolerated - Wound care per RN/WCT - continue accuchecks with glycemic control per SSI for target blood glucose < 180 mg/dL - home oxygen evaluation at discharge - GI & VTE prophylaxis - Flu & pneumovax per protocol - continue other care per attending / other consultants - prn analgesia per pain score ... re-evaluate in am & prn Subjective Date of service: 05/03/21 Principal diagnosis: Acute CVA s/p TPA; New onset seizures; Bradycardia; HTN; Obesity; DM II Interval history: Patient is seen today for: Acute cerebrovascular accident s/p TPA; New onset seizures; Bradycardia; Hypertension; Obesity; DM II Seen and examined at bedside; 24hour events reviewed; nursing and respiratory care staff consulted; no adverse overnight events reported to me; resting in bed; Objective Vital Signs - 12hr 05/02/21 05/02/21 05/03/21 22:50 23:15 00:00 Temperature 97.6 F Pulse Rate 56 L 53 L Pulse Rate [ 54 L From Monitor] Respiratory 12 20 21 Rate Blood Pressure 123/58 143/69 O2 Sat by Pulse 97 98 98 Oximetry 05/03/21 05/03/21 05/03/21 04:00 04:42 08:15 Temperature 98.5 F 98.3 F Pulse Rate 66 55 L Pulse Rate [ 50 L From Monitor] Respiratory 21 16 20 Rate Blood Pressure 133/75 115/58 O2 Sat by Pulse 98 97 97 Oximetry Constitutional: no acute distress Eyes: non-icteric ENT: oropharynx moist Neck: supple, no lymphadenopathy, no JVD Effort: mildly labored Ascultation: Bilateral: clear Percussion: Bilateral: not dull Cardiovascular: regular rate and rhythm Gastrointestinal: normoactive bowel sounds, soft, non-tender, non-distended (protuberant) Integumentary: normal Extremities: no cyanosis, no edema, pulses normal, no ischemia or petechiae Neurologic: non-focal exam (grossly), pupils equal and round, CN II-XII normal, motor strength normal and Psychiatric: other (unable to assess re: AMS) CBC and BMP: 05/03/21 04:51 05/03/21 04:51 ABG, PT/INR, D-dimer: PT/INR, D-dimer PT 14.0 Sec. (12.2-14.9) 05/03/21 04:51 INR 0.97 (0.87-1.13) 05/03/21 04:51 Abnormal lab findings: Abnormal Labs 05/01/21 05/01/21 05/01/21 13:02 13:02 13:02 RBC Hct MCV MCH 25 L RDW 16.7 H Seg Neutrophils % 74.4 H APTT 21.5 L Potassium Chloride BUN Glucose POC Glucose Hemoglobin A1c Calcium Total Creatine Kinase 160 H Total Protein Albumin Cholesterol LDL Cholesterol Direct 05/01/21 05/01/21 05/02/21 13:02 16:47 04:47 RBC Hct MCV MCH RDW Seg Neutrophils % APTT Potassium 3.5 L Chloride 109.3 H BUN 18 H Glucose 116 H POC Glucose 113 H Hemoglobin A1c Calcium 7.9 L Total Creatine Kinase Total Protein 5.1 L Albumin 3.3 L Cholesterol 211 H LDL Cholesterol Direct 133 H 05/02/21 05/02/21 05/02/21 09:26 09:26 18:02 RBC 5.39 H Hct MCV 78 L MCH 23 L RDW 17.1 H Seg Neutrophils % APTT Potassium Chloride BUN Glucose 102 H POC Glucose 137 H Hemoglobin A1c Calcium Total Creatine Kinase Total Protein Albumin Cholesterol LDL Cholesterol Direct 05/02/21 05/03/21 05/03/21 21:03 04:51 04:51 RBC 5.51 H Hct 43.4 H MCV MCH 24 L RDW 16.7 H Seg Neutrophils % APTT Potassium Chloride 108.1 H BUN Glucose 130 H POC Glucose 162 H Hemoglobin A1c Calcium Total Creatine Kinase Total Protein Albumin Cholesterol LDL Cholesterol Direct 05/03/21 04:51 RBC Hct MCV MCH RDW Seg Neutrophils % APTT Potassium Chloride BUN Glucose POC Glucose Hemoglobin A1c 6.3 H Calcium Total Creatine Kinase Total Protein Albumin Cholesterol LDL Cholesterol Direct Allied health notes reviewed: nursing
[2021-05-03] MEDS: levETIRAcetam 500 MG TAB PO SCH ×2 (10:48→21:25)
[2021-05-03] MEDS: FAMOTIDINE 20 MG TAB PO SCH ×2 (10:48→21:25)
[2021-05-03] MEDS: ASPIRIN 325 MG TAB PO SCH (10:49)
--- NOTE | 2021-05-03 12:11 | Progress Note ---
Assessment and Plan Assessment and Plan 61 YO Female with Obesity presents to ED for evaluation. Patient has diminished cognition at the time my evaluation and is unable to provide detailed history. Patient history taken EMS staff, ED staff, as well as coworkers who witnessed the incident. As per coworkers the patient complained of right-sided weakness and subsequently lost consciousness. Patient subsequently had multiple wit nessed seizures lasting longer than 5 minutes without return to baseline level of consciousness. EMS was notified and upon arrival the patient was found to be in distress with a neurologic deficit with new onset seizure disorder. A code stroke was called and the patient was transported to [facility] for further care and evaluation of the aforementioned symptoms. The patient was seen and evaluated in the emergency department. All lab and imaging studies reviewed. Patient found to have a focal neurologic deficit and was initiated on CVA protocol. Teleneurology team consulted in ED. Patient treated with TPA. Patient admitted to ICU status post TPA due to increased risk of worsening symptoms. Patient has diminished cognition but has a positive gag reflex and is able to protect her airway without difficulty. No reports of fever, chills, chest pain, palpitation, productive cough, skin rash, recent contact, known exposure to COVID-19. No prior admission for review. No medication listed at time of admission for reconciliation. Advanced care planning conducted in ED. - Patient Problems #Possible CVA (cerebral vascular accident) - new onset right side weakness followed by syncopy and witnessed seizure -had TPA in ER yesterday -NIH today is #0 -No hx of CVA or Seizure -CT brain is unremarkable -CTA brain and neck is remarkable for scattered atherosclerotic disease intra and extracranial -MRI brain is unremarkable no acute event is noted -EEG is normal -Echo is pending -LDL#133 -Keppra 500 mg BID -PT/ST evaluate -Lipitor 40 mg - ASA 325 -- will change to 81 mg daily -Cardiac monitering # Status epilepticus -New onset seizure disorder complicated by status epilepticus. - Patient currently postictal. - Seizure precaution, aspiration precautions, fall precautions, antiepileptic therapy, supportive care. - Outpatient neurology follow-up. -Keppra 500 mg bid -EEG is unremarkable -seizure precaution no driving # Bradycardia -continue to have Bradycardia at 40-50th Beat /Min -cardiac monitering review echo -cardiology # Received intravenous tissue plasminogen activator (tPA) in emergency department # DVT prophylaxis -SCD to bilateral lower extremities while in bed will follow as needed Findings are D/W pt. Subjective Date of service: 05/03/21 Principal diagnosis: seizure? Interval history: she is alert oriented no focal weakness amnestic to event MRI brain is unremarkable started on ASA and Lipitor US carotid <50% bilateral EEG is unremarkable awake and drowsy LDL#133 HR#50th Echo is pending Objective - Vital Sign Vital Signs - 12hr 05/03/21 05/03/21 05/03/21 04:00 04:42 08:15 Temperature 98.5 F 98.3 F Pulse Rate 66 55 L Pulse Rate [ 50 L From Monitor] Respiratory 21 16 20 Rate Blood Pressure 133/75 115/58 O2 Sat by Pulse 98 97 97 Oximetry 05/03/21 11:37 Temperature 98.3 F Pulse Rate 53 L Pulse Rate [ From Monitor] Respiratory 20 Rate Blood Pressure 112/70 O2 Sat by Pulse 98 Oximetry - General Apperance Constitutional: comfortable - EENT EENT: PERRL, mucous membranes moist - Respiratory Respiratory: chest non-tender, lungs clear - Cardiovascular Cardiovascular: regular rate, normal S1, normal S2 Extremities: no peripheral edema bilat, no clubbing, cyanosis - Gastrointestinal Gastrointestinal: normoactive bowel sounds - Integumentary Integumentary: normal - Neurologic Cranial nerve examination: PERRL, EOMI, intact Speech examination: intact Detailed motor examination: grossly full strength in - Laboratory Findings CBC and BMP: 05/03/21 04:51 05/03/21 04:51 Abnormal Lab Findings: Abnormal Labs 05/01/21 05/01/21 05/01/21 13:02 13:02 13:02 RBC Hct MCV MCH 25 L RDW 16.7 H Seg Neutrophils % 74.4 H APTT 21.5 L Potassium Chloride BUN Glucose POC Glucose Hemoglobin A1c Calcium Total Creatine Kinase 160 H Total Protein Albumin Cholesterol LDL Cholesterol Direct 05/01/21 05/01/21 05/02/21 13:02 16:47 04:47 RBC Hct MCV MCH RDW Seg Neutrophils % APTT Potassium 3.5 L Chloride 109.3 H BUN 18 H Glucose 116 H POC Glucose 113 H Hemoglobin A1c Calcium 7.9 L Total Creatine Kinase Total Protein 5.1 L Albumin 3.3 L Cholesterol 211 H LDL Cholesterol Direct 133 H 05/02/21 05/02/21 05/02/21 09:26 09:26 18:02 RBC 5.39 H Hct MCV 78 L MCH 23 L RDW 17.1 H Seg Neutrophils % APTT Potassium Chloride BUN Glucose 102 H POC Glucose 137 H Hemoglobin A1c Calcium Total Creatine Kinase Total Protein Albumin Cholesterol LDL Cholesterol Direct 05/02/21 05/03/21 05/03/21 21:03 04:51 04:51 RBC 5.51 H Hct 43.4 H MCV MCH 24 L RDW 16.7 H Seg Neutrophils % APTT Potassium Chloride 108.1 H BUN Glucose 130 H POC Glucose 162 H Hemoglobin A1c Calcium Total Creatine Kinase Total Protein Albumin Cholesterol LDL Cholesterol Direct 05/03/21 04:51 RBC Hct MCV MCH RDW Seg Neutrophils % APTT Potassium Chloride BUN Glucose POC Glucose Hemoglobin A1c 6.3 H Calcium Total Creatine Kinase Total Protein Albumin Cholesterol LDL Cholesterol Direct
--- NOTE | 2021-05-03 12:59 | Progress Note ---
Assessment and Plan Assessment and plan: #CVA #Right hemiparesis -Status post TPA #Status epilepticus -New onset seizure -Continue Keppra at current dose -EEG and MRI unremarkable -Seizure precautions -Advised to follow-up outpatient with neurology #Bradycardia #History of hypertension #Noninsulin-dependent type 2 diabetes -A1c 6.3% -Continue sliding scale insulin and Accu-Cheks while inpatient Hospitalist Physical - Constitutional Vitals: Temp Pulse Resp BP Pulse Ox 98.3 F 53 L 20 112/70 98 05/03/21 11:37 05/03/21 11:37 05/03/21 11:37 05/03/21 11:37 05/03/21 11:37 General appearance: Present: no acute distress, obese HEART Score - HEART Score Troponin: Troponin T < 0.010 ng/mL (0.00-0.029) 05/01/21 13:02 Results - Labs CBC & Chem 7: 05/03/21 04:51 05/03/21 04:51 Labs: Laboratory Last Values WBC 6.8 K/mm3 (4.5-11.0) 05/03/21 04:51 RBC 5.51 M/mm3 (3.65-5.03) H 05/03/21 04:51 Hgb 13.3 gm/dl (10.1-14.3) 05/03/21 04:51 Hct 43.4 % (30.3-42.9) H 05/03/21 04:51 MCV 79 fl (79-97) 05/03/21 04:51 MCH 24 pg (28-32) L 05/03/21 04:51 MCHC 31 % (30-34) 05/03/21 04:51 RDW 16.7 % (13.2-15.2) H 05/03/21 04:51 Plt Count 208 K/mm3 (140-440) 05/03/21 04:51 Lymph % (Auto) 18.3 % (13.4-35.0) 05/01/21 13:02 [place] % (Auto) 6.0 % (0.0-7.3) 05/01/21 13:02 Eos % (Auto) 1.0 % (0.0-4.3) 05/01/21 13:02 Baso % (Auto) 0.3 % (0.0-1.8) 05/01/21 13:02 Lymph # (Auto) 1.4 K/mm3 (1.2-5.4) 05/01/21 13:02 [place] # (Auto) 0.5 K/mm3 (0.0-0.8) 05/01/21 13:02 Eos # (Auto) 0.1 K/mm3 (0.0-0.4) 05/01/21 13:02 Baso # (Auto) 0.0 K/mm3 (0.0-0.1) 05/01/21 13:02 Seg Neutrophils % 74.4 % (40.0-70.0) H 05/01/21 13:02 Seg Neutrophils # 5.8 K/mm3 (1.8-7.7) 05/01/21 13:02 PT 14.0 Sec. (12.2-14.9) 05/03/21 04:51 INR 0.97 (0.87-1.13) 05/03/21 04:51 APTT 36.0 Sec. (24.2-36.6) 05/02/21 09:26 Thrombin Time 17.4 Sec. (15.1-19.6) 05/01/21 13:02 Sodium 143 mmol/L (137-145) 05/03/21 04:51 Potassium 3.8 mmol/L (3.6-5.0) 05/03/21 04:51 Chloride 108.1 mmol/L (98-107) H 05/03/21 04:51 Carbon Dioxide 23 mmol/L (22-30) 05/03/21 04:51 Anion Gap 16 mmol/L 05/03/21 04:51 BUN 15 mg/dL (7-17) 05/03/21 04:51 Creatinine 0.8 mg/dL (0.6-1.2) 05/03/21 04:51 Estimated GFR > 60 ml/min 05/03/21 04:51 BUN/Creatinine Ratio 19 % 05/03/21 04:51 Glucose 130 mg/dL (65-100) H 05/03/21 04:51 POC Glucose 162 mg/dL (70-105) H 05/02/21 21:03 Hemoglobin A1c 6.3 % (4-6) H 05/03/21 04:51 Calcium 9.2 mg/dL (8.4-10.2) 05/03/21 04:51 Phosphorus 3.80 mg/dL (2.5-4.5) 05/03/21 04:51 Magnesium 1.80 mg/dL (1.7-2.3) 05/03/21 04:51 Total Bilirubin 0.20 mg/dL (0.1-1.2) 05/01/21 13:02 AST 10 units/L (5-40) 05/01/21 13:02 ALT 11 units/L (7-56) 05/01/21 13:02 Alkaline Phosphatase 85 units/L (35-129) 05/01/21 13:02 Total Creatine Kinase 160 units/L (30-135) H 05/01/21 13:02 CK-MB (CK-2) 2.1 ng/mL (0.0-4.0) 05/01/21 13:02 CK-MB (CK-2) Rel Index 1.3 (0-4) 05/01/21 13:02 Troponin T < 0.010 ng/mL (0.00-0.029) 05/01/21 13:02 Total Protein 5.1 g/dL (6.3-8.2) L 05/01/21 13:02 Albumin 3.3 g/dL (3.9-5) L 05/01/21 13:02 Albumin/Globulin Ratio 1.8 % 05/01/21 13:02 Triglycerides 104 mg/dL (2-149) 05/02/21 04:47 Cholesterol 211 mg/dL (50-199) H 05/02/21 04:47 LDL Cholesterol Direct 133 mg/dL (50-130) H 05/02/21 04:47 HDL Cholesterol 59 mg/dL (40-59) 05/02/21 04:47 Cholesterol/HDL Ratio 3.57 % 05/02/21 04:47 Active Medications - Current Medications Current Medications: Generic Name Dose Route Start Last Admin Trade Name Freq PRN Reason Stop Dose Admin Acetaminophen 650 mg 05/01/21 14:38 Acetaminophen 325 Mg Tab PO Q4H PRN Pain, Mild (1-3) Aspirin 325 mg 05/03/21 10:00 05/03/21 10:49 Aspirin 325 Mg Tab PO 325 mg QDAY GAMALIEL Administration Atorvastatin Calcium 40 mg 05/01/21:00 05/02/21 20:59 Atorvastatin 40 Mg Tab PO 40 mg QHS GAMALIEL Administration Bisacodyl 10 mg 05/01/21 14:38 Bisacodyl 10 Mg Rect Supp MD QDAY PRN Constipation Dextrose 50 ml 05/02/21 18:32 Dextrose 50% In Water (25gm) 50 Ml Syringe IV Q30MIN PRN Hypoglycemia Protocol Dextrose 0 ml 05/02/21 18:52 Dextrose 10% *Hypoglycemia IV PRN PRN Hypoglycemia Famotidine 20 mg 05/02/21 22:00 05/03/21 10:48 Famotidine 20 Mg Tab PO 20 mg BID GAMALIEL Administration Insulin Human Lispro 0 unit 05/02/21 22:00 05/03/21 08:49 Insulin Lispro 100 Unit/Ml SUB-Q Not Given ACHS [facility] Protocol Levetiracetam 500 mg 05/02/21 12:00 05/03/21 10:48 Levetiracetam 500 Mg Tab PO 500 mg BID GAMALIEL Administration Magnesium Hydroxide 30 ml 05/01/21 14:38 Magnesium Hydroxide (Mom) Oral Liqd Udc PO Q4H PRN Constipation Metoclopramide HCl 10 mg 05/01/21 14:38 Metoclopramide 10 Mg Tab PO Q6H PRN Nausea And Vomiting Ondansetron HCl 4 mg 05/01/21 14:38 Ondansetron 4 Mg/2 Ml Inj IV Q8H PRN Nausea And Vomiting Oxycodone/Acetaminophen 1 tab 05/01/21 14:38 Oxycodone /Acetaminophen 5-325mg Tab PO Q16H PRN Pain, Moderate (4-6) Sodium Chloride 10 ml 05/01/21 15:00 Sodium Chloride 0.9% 50 Ml Ivpb IV PRN PRN LINE FLUSH Sodium Chloride 10 ml 05/02/21 11:16 Sodium Chloride 0.9% 50 Ml Ivpb IV PRN PRN FLUSH
--- NOTE | 2021-05-03 13:46 | Consultation ---
History of Present Illness Consult date: 05/03/21 Requesting physician: CHOLO COTTRELL Consult reason: bradycardia History of present illness: This is a 61-year-old female with known past medical history of HTN, type 2 DM on metformin at home admitted for seizure, and acute CVA s/p TPA. Patient reports that she was at work when everything all of a sudden blacked out. Per documentation patient was witnessed to be having seizures lasting longer than 5 minutes patient was brought to the ED and given TPA without complication. Overnight patient had some episodes of bradycardia heart rate trending 48 and to 50s. At time of interview patient is awake and sitting in chair. Patient reports some right-sided weakness but states overall he feels well. Patient denies any cardiac symptoms including chest pain, shortness of breath, dizziness, palpitations, lightheadedness, nausea or vomiting. Patient is previously known to our practice. Cardiology is consulted for bradycardia. Past History Past Medical History: diabetes, hypertension, other (See HPI) Past Surgical History: No surgical history, Other (Reviewed) Social history: single. denies: smoking, alcohol abuse, prescription drug abuse Family history: hypertension Medications and Allergies Allergies Allergy/AdvReac Type Severity Reaction Status Date / Time No Known Allergies Allergy Verified 05/01/21 13:54 Home Medications Medication Instructions Recorded Confirmed Last Taken Type Metformin HCl [Metformin HCl ER] 750 mg PO QDAY 05/03/21 05/03/21 05/01/21 History amLODIPine [Norvasc] 10 mg PO DAILY 05/03/21 05/03/21 05/01/21 History Active Meds: Active Medications Acetaminophen (Acetaminophen 325 Mg Tab) 650 mg PO Q4H PRN PRN Reason: Pain, Mild (1-3) Aspirin (Aspirin 325 Mg Tab) 325 mg PO QDAY [facility] Last Admin: 05/03/21 10:49 Dose: 325 mg Atorvastatin Calcium (Atorvastatin 40 Mg Tab) 40 mg PO QHS [facility] Last Admin: 05/02/21 20:59 Dose: 40 mg Bisacodyl (Bisacodyl 10 Mg Rect Supp) 10 mg AR QDAY PRN PRN Reason: Constipation Dextrose (Dextrose 50% In Water (25gm) 50 Ml Syringe) 50 ml IV Q30MIN PRN; Protocol PRN Reason: Hypoglycemia Dextrose (Dextrose 10% *Hypoglycemia) 0 ml IV PRN PRN PRN Reason: Hypoglycemia Famotidine (Famotidine 20 Mg Tab) 20 mg PO BID [facility] Last Admin: 05/03/21 10:48 Dose: 20 mg Insulin Human Lispro (Insulin Lispro 100 Unit/Ml) 0 unit SUB-Q ACHS [facility]; Protocol Last Admin: 05/03/21 08:49 Dose: Not Given Levetiracetam (Levetiracetam 500 Mg Tab) 500 mg PO BID [facility] Last Admin: 05/03/21 10:48 Dose: 500 mg Magnesium Hydroxide (Magnesium Hydroxide (Mom) Oral Liqd Udc) 30 ml PO Q4H PRN PRN Reason: Constipation Metoclopramide HCl (Metoclopramide 10 Mg Tab) 10 mg PO Q6H PRN PRN Reason: Nausea And Vomiting Ondansetron HCl (Ondansetron 4 Mg/2 Ml Inj) 4 mg IV Q8H PRN PRN Reason: Nausea And Vomiting Oxycodone/Acetaminophen (Oxycodone /Acetaminophen 5-325mg Tab) 1 tab PO Q16H PRN PRN Reason: Pain, Moderate (4-6) Sodium Chloride (Sodium Chloride 0.9% 50 Ml Ivpb) 10 ml IV PRN PRN PRN Reason: LINE FLUSH Sodium Chloride (Sodium Chloride 0.9% 50 Ml Ivpb) 10 ml IV PRN PRN PRN Reason: FLUSH Review of Systems Constitutional: no weight loss, no weight gain, no fever, no sweats Ears, nose, mouth and throat: no nasal discharge, no sinus pressure, no sinus pain Cardiovascular: no chest pain, no orthopnea, no palpitations, no edema, no syncope, no lightheadedness, no shortness of breath, no dyspnea on exertion Respiratory: no shortness of breath, no dyspnea on exertion Gastrointestinal: no abdominal pain, no nausea, no vomiting Musculoskeletal: no neck stiffness, no neck pain, no shooting arm pain Integumentary: no rash, no pruritis, no redness Neurological: weakness (rightsided), no head injury Psychiatric: no anxiety, no memory loss Physical Examination Vital Signs Resp 19 05/01/21 13:24 General appearance: no acute distress HEENT: Positive: PERRL Neck: Positive: trachea midline Cardiac: Positive: Reg Rate and Rhythm Lungs: Positive: Normal Breath Sounds Neuro: Positive: Grossly Intact Abdomen: Positive: Soft, Active Bowel Sounds Skin: Negative: Rash, Suspicious Lesions, Ulceration Extremities: Present: upper extr. pulses. Absent: edema Results 05/03/21 04:51 05/03/21 04:51 Coagulation 05/03/21 Range/Units 04:51 PT 14.0 (12.2-14.9) Sec. INR 0.97 (0.87-1.13) CBC 05/03/21 Range/Units 04:51 WBC 6.8 (4.5-11.0) K/mm3 RBC 5.51 H (3.65-5.03) M/mm3 Hgb 13.3 (10.1-14.3) gm/dl Hct 43.4 H (30.3-42.9) % Plt Count 208 (140-440) K/mm3 Comprehensive Metabolic Panel 05/03/21 Range/Units 04:51 Sodium 143 (137-145) mmol/L Potassium 3.8 (3.6-5.0) mmol/L Chloride 108.1 H (98-107) mmol/L Carbon Dioxide 23 (22-30) mmol/L BUN 15 (7-17) mg/dL Creatinine 0.8 (0.6-1.2) mg/dL Glucose 130 H (65-100) mg/dL Calcium 9.2 (8.4-10.2) mg/dL - Imaging and Cardiology Echo: report reviewed EKG interpretations - Telemetry EKG Rhythm: Sinus Rhythm - EKG Sinus rhythms and dysrhythmias: sinus rhythm Assessment and Plan This is a 61-year-old female with known past medical history of HTN, type 2 DM on metformin at home admitted for seizure, and acute CVA s/p TPA CVA s/p TPA Seizures Asymptomatic bradycardia HTN DM Echo 05/01/2021-EF 55 to 60%. I diastolic dysfunction is present impaired relaxation pattern. Right ventricle systolic function is normal. Atrial septum is bowed toward left consistent with elevated right atrial pressures. Bubble study did not demonstrate PFO Plan: EKG shows sinus rhythm 53 inferior infarct age indeterminant, nonspecific T wave abnormalities. No acute ischemic changes. Patient denies any chest pain Patient was bradycardic (rate as low as 48 trending in 50s) overnight likely while asleep. This a.m. patient heart rate trending 60s. Patient is also hemodynamically stable and denying any symptoms No immediate intervention is indicated. Patient can follow-up with our practice as an Patient cardiac status otherwise stable Discussed plan of care with patient who verbalized agreement and understanding Patient has a follow-up with Dr. Juarez , [facility], on 05/28/2021 at 1 PM at our [place] location. Phone #[phone] - Patient Problems (1) Bradycardia Current Visit: Yes Status: Acute (2) CVA (cerebral vascular accident) Current Visit: Yes Status: Acute (3) Obesity (BMI 35.0-39.9 without comorbidity) Current Visit: Yes Status: Acute (4) Right hemiparesis Current Visit: Yes Status: Acute (5) Status epilepticus Current Visit: Yes Status: Acute
--- NOTE | 2021-05-04 07:43 | Discharge Summary ---
Providers - Providers Date of Admission: 05/01/21 14:38 Attending physician: MATT DOBBINS MD 05/01/21 14:38 Occupational Therapy Evaluate and Treat [CONS] Routine Comment: Reason For Exam: Neuro deficits Physical Therapy Evaluation and Treat [CONS] Routine Comment: Reason For Exam: Neuro deficits 05/01/21 14:43 Consult to Physician [CONS] Routine Comment: Consulting Provider: JULIAN MOORE Physician Instructions: Reason For Exam: CVA s/p TPA 05/02/21 08:46 Consult to Physician [CONS] Routine Comment: left mess. / jerri Consulting Provider: KT GO Physician Instructions: Reason For Exam: CVA s/p TPA 05/02/21 08:48 Speech Therapy Evaluation and Treat [CONS] Routine Reason For Exam: CVA, neuro deficit 05/02/21 17:59 Consult to Physician [CONS] Routine Comment: Consulting Provider: MEG VELARDE Physician Instructions: Reason For Exam: Bradycardia, CVA s/p TPA 05/03/21 12:58 Consult to Case Management [CONS] Routine Services Needed at Discharge: Home Health Services Notified:: cm notified Primary care physician: SHOP TEACHER Hospitalization Condition: Stable Disposition: 30 STILL A PATIENT Exam - Constitutional Vitals: Temp Pulse Resp BP Pulse Ox 98.0 F 54 L 18 132/68 100 05/04/21 04:01 05/04/21 04:01 05/04/21 04:01 05/04/21 04:01 05/04/21 04:01 Plan Care Plan Goals: These follow-up with your primary care doctor as soon as possible. Please have your primary care doctor to refer you to neurology for post stroke follow-up. You need to start taking the medications we prescribed for you daily. Your heart rate was noted to be low while sleeping. Since you do not have any symptoms, it is okay for you to follow-up with cardiology outpatient for further monitoring. Please have your PCP to refer you to a chip unloader. Please do not drive until you follow-up with the neurologist. Follow up with: PRIMARY CAREMD [Primary Care Provider] - 7 Days Prescriptions: AtorvaSTATin [Lipitor] 40 mg PO QHS 30 Days #30 tablet Aspirin 325 mg PO QDAY 30 Days #30 tablet levETIRAcetam [Keppra TAB] 500 mg PO BID 30 Days #60 tablet
[2021-05-04] MEDS: ASPIRIN 325 MG TAB PO SCH (10:42)
[2021-05-04] MEDS: levETIRAcetam 500 MG TAB PO SCH (10:42)
[2021-05-04] MEDS: FAMOTIDINE 20 MG TAB PO SCH (10:42)
[2021-05-04 16:32] VITALS: BP 134/51
== END 2021-05-04 14:20 | disposition home health service (06) | DRG 62 ==
LOC: ED 12:33 → CC1 14:38 → 4A 05-02 23:39
PROVIDERS: ADMIT Internal Medicine; ATTEND Student in an Organized Health Care Education/Training Program
DX: I63.9 Cerebral infarction, unspecified (principal); G81.91 Hemiplegia, unspecified affecting right dominant side; G40.901 Epilepsy, unspecified, not intractable, with status epilepticus; I10 Essential (primary) hypertension; E11.9 Type 2 diabetes mellitus without complications; Z82.49 Family history of ischemic heart disease and other diseases of the circulatory system; E66.9 Obesity, unspecified; Z68.35 Body mass index [BMI] 35.0-35.9, adult; Z90.49 Acquired absence of other specified parts of digestive tract; Z96.649 Presence of unspecified artificial hip joint; R00.1 Bradycardia, unspecified; E87.6 Hypokalemia
CPT/HCPCS: 36415; 70450; 70496; 70498; 70551; 80048; 80053; 80061; 82550; 82553; 82962; 83036; 83735; 84100; 84484; 85025; 85027; 85610; 85670; 85730; 93005; 93010; 93306; 93880; 95819; G0378; Q9967; C8929; J1815; J1953; J2997